=== PATIENT | female | born 1980 | race Hispanic/Latino ===

== ENCOUNTER 2018-12-21 23:24 | Emergency (ER) | payer SELFPAY ==
[2018-12-22 01:32] LABS: Protime INR 0.9
[2018-12-22 01:34] LABS: Basophils % 0.2 % (0-1.3); Hematocrit 31.4 % (36.0-45.0); Lymphocytes % 23.5 % (15.3-44.8); MPV 9.4 fL (7.6-11.3)
[2018-12-22 01:43] LABS: Albumin 3.8 g/dL (3.4-5.0); Bilirubin Direct 0.1 mg/dL (0-0.2); Bilirubin Total 0.4 mg/dL (0.2-1.0); Magnesium 1.9 mg/dL (1.8-2.4); Potassium 3.6 mmol/L (3.5-5.1); Protein, Total 7.4 g/dL (6.4-8.2)
[2018-12-22 01:44] LABS: Urine Blood NEGATIVE (NEG); Urine Glucose TRACE (NEG); Urine Protein NEGATIVE (NEG); Urine Specific Gravity 1.025 (1.005-1.030)
[2018-12-22 02:06] LABS: Urine Bacteria 20-50 /HPF (<20); Urine Culture Reflex Order REFLEXED; Urine RBC NONE SEEN /HPF (NONE SEEN); Urine Yeast FEW (NONE SEEN); Urine Yeast with Hyphae PRESENT
[2018-12-22] MEDS ORDERED: FLUCONAZOLE 100 MG TAB ONE (03:41)
[2018-12-22] MEDS ORDERED: CEFTRIAXONE 1000 MG/VIAL ONE (03:42)
[2018-12-22] MEDS ORDERED: NA CHLORIDE 0.9% 50 ML IV ONE (03:42)
--- NOTE | 2018-12-22 05:21 | ER ---
Nurse's Notes [facility] Name: Jane Pitt Age: 38 yrs Sex: Female : 1980 Arrival Date: 12/21/2018 Time: 23:27 Bed 4 Private MD: Diagnosis: acute left sided weakness. ;acute left sided numbess;acute Left sided abdominal pain Presentation: 12/21 23:50 Presenting complaint: Patient states: I am having left sided numbness, left breast wh pressure, left sided abdominal pain, and my left ear gets hot and I have a ringing in my ear. 23:50 Transition of care: patient was not received from another setting of care. Onset of symptoms was December 14, 2018. Risk Assessment: Do you want to hurt yourself or someone else? Patient reports no desire to harm self or others. Initial Sepsis Screen: Does the patient meet any 2 criteria? No. Patient's initial sepsis screen is negative. Does the patient have a suspected source of infection? No. Patient's initial sepsis screen is negative. Care prior to arrival: None. 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 - Social history:: Smoking status: Patient/guardian denies using tobacco, Patient/guardian denies using alcohol. - Ebola Screening: : No symptoms or risks identified at this time. - Family history:: not pertinent. - Hospitalizations: : No recent hospitalization is reported. Screenin:50 Abuse screen: Denies threats or abuse. Nutritional screening: No deficits noted. Tuberculosis screening: No symptoms or risk factors identified. Fall Risk Gait- Impaired (20 pts.). Total Briscoe Fall Scale indicates No Risk (0-24 pts). Assessment: 23:50 General: Appears in no apparent distress. comfortable, Behavior is calm, cooperative, wh appropriate for age. Pain: Complains of pain in left ear, left breast and left lower quadrant Pain does not radiate. Pain currently is 5 out of 10 on a pain scale. Quality of pain is described as burning, pressure, stabbing, Pain began 1 week ago. Is intermittent. Neuro: Level of Consciousness is awake, alert, obeys commands, Oriented to person, place, time, situation, Stretching Machine Operator are equal bilaterally Moves all extremities. Weakness in left hand(s) foot/feet Gait is steady, Speech is normal, Facial symmetry appears normal, Pupils are PERRLA, Reports numbness in Left side. Cardiovascular: Patient's skin is warm and dry. Respiratory: Airway is patent Respiratory effort is even, unlabored, Respiratory pattern is regular, symmetrical. GI: Abdomen is flat, non-distended, Patient currently denies diarrhea, nausea, vomiting. : No deficits noted. No signs and/or symptoms were reported regarding the genitourinary system. EENT: No deficits noted. No signs and/or symptoms were reported regarding the EENT system. Derm: Skin is intact, Skin is pink, warm \T\ dry. Musculoskeletal: Circulation, motion, and sensation intact. Range of motion: intact in all extremities. 12/22 01:11 Reassessment: Patient appears in no apparent distress at this time. Patient and/or jb4 family updated on plan of care and expected duration. Pain level reassessed. Patient is alert, oriented x 3, equal unlabored respirations, skin warm/dry/pink. 02:00 Reassessment: Patient appears in no apparent distress at this time. Patient and/or jb4 family updated on plan of care and expected duration. Pain level reassessed. PT is resting in bed with eyes closed, no s/s of distress or pain noted. respirations are even, symmetrical, and unlabored. 02:37 Reassessment: PT is in CT. jb4 03:30 Reassessment: Patient appears in no apparent distress at this time. Patient and/or jb4 family updated on plan of care and expected duration. Pain level reassessed. Patient is alert, oriented x 3, equal unlabored respirations, skin warm/dry/pink. 04:27 Reassessment: Patient appears in no apparent distress at this time. Patient and/or jb4 family updated on plan of care and expected duration. Pain level reassessed. Patient is alert, oriented x 3, equal unlabored respirations, skin warm/dry/pink. 05:30 Reassessment: Patient appears in no apparent distress at this time. Patient and/or jb4 family updated on plan of care and expected duration. Pain level reassessed. Patient is alert, oriented x 3, equal unlabored respirations, skin warm/dry/pink. 07:07 Reassessment: Patient appears in no apparent distress at this time. Patient and/or jb4 family updated on plan of care and expected duration. Pain level reassessed. Patient is alert, oriented x 3, equal unlabored respirations, skin warm/dry/pink. Report given to [facility], PT transferred to [facility] in [place]. Vital Signs: 12/21 23:50 BP 135 / 78; Pulse 91; Resp 16; Temp 98.4(TE); Pulse Ox 100% on R/A; Weight 90.72 kg wh (R); Height 5 ft. 1 in. (154.94 cm) (R); Pain 5/10; 12/22 01:30 BP 115 / 96; Pulse 84; Resp 16; Pulse Ox 100% on R/A; jb4 02:00 BP 114 / 75; Pulse 83; Resp 16; Pulse Ox 100% on R/A; jb4 03:00 BP 107 / 62; Pulse 79; Resp 16; Pulse Ox 100% on R/A; jb4 04:00 BP 114 / 62; Pulse 86; Resp 16; Pulse Ox 94% on R/A; jb4 05:00 BP 106 / 70; Pulse 74; Resp 16; Pulse Ox 100% on R/A; jb4 06:00 BP 116 / 80; Pulse 86; Resp 16; Temp 98.7(O); Pulse Ox 100% on R/A; jb4 07:00 BP 115 / 71; Pulse 81; Resp 16; Pulse Ox 100% on R/A; Pain 0/10; jb4 12/21 23:50 Body Mass Index 37.79 (90.72 kg, 154.94 cm) ED Course: 12/21 23:27 Patient arrived in ED. ds1 23:46 Artur Ronquillo MD is Attending Physician. wa 23:50 Arm band placed on right wrist. wh 23:50 Patient has correct armband on for positive identification. Placed in gown. Bed in low wh position. Call light in reach. Side rails up X 1. Pulse ox on. NIBP on. 12/22 00:02 Madisyn Ford is Primary Nurse. 00:07 Triage completed. 00:25 EKG done, by ED staff, reviewed by Artur Ronquillo MD. lt1 00:26 Ilir Morales RN is Primary Nurse. jb4 00:41 Radiology exam delayed due to lab results not completed at this time. (BUN/Creatinine) kw1 test not completed at this time. 01:05 Initial lab(s) drawn, by il, sent to lab. Inserted saline lock: 20 gauge in right jb4 antecubital area, using aseptic technique. Blood collected. 01:07 Radiology exam delayed due to lab results not completed at this time. (BUN/Creatinine). kw1 01:23 Radiology exam delayed due to lab results not completed at this time. (BUN/Creatinine). kw1 02:39 CT Head Brain wo Cont In Process Unspecified. EDMS 02:43 CT Abd/Pelvis - IV Contrast Only In Process Unspecified. EDMS 07:00 No provider procedures requiring assistance completed. Patient transferred, IV remains jb4 in place. Administered Medications: 04:26 Drug: Rocephin - (cefTRIAXone) 1 grams Route: IVPB; Infused Over: 30 mins; Site: right jb4 antecubital; 04:56 Follow up: Response: No adverse reaction; IV Status: Completed infusion; IV Intake: [id number] 04:26 Drug: DiFLUcan 100 mg Route: PO; jb4 04:56 Follow up: Response: No adverse reaction jb4 06:00 Drug: Aspirin Chewable Tablet 324 mg Route: PO; jb4 06:29 Follow up: Response: No adverse reaction jb4 Intake: 04:56 IV: 50ml; Total: 50ml. jb4 Outcome: 05:20 ER care complete, transfer ordered by . ira 07:00 Transferred by ground EMS to [facility], Transfer form completed. jb4 07:00 Condition: stable 07:00 Discharge instructions given to patient, family, Instructed on the need for transfer, Demonstrated understanding of instructions. 07:10 Patient left the ED. jb4 Signatures: Dispatcher [employer] EDRI Richard, Arlene ds1 Ilir Morales RN RN jb4 Madisyn Ford Artur Ronquillo MD MD ar Domi Gandara kw1 Sintia Stanley lt1 Corrections: (The following items were deleted from the chart) 00:13 12/21 23:50 Fall Risk None identified. [facility] 12/22 02:37 02:35 Reassessment: Patient appears in no apparent distress at this time. Patient jb4 and/or family updated on plan of care and expected duration. Pain level reassessed. PT is resting in bed with eyes closed, no s/s of distress or pain noted. respirations are even, symmetrical, and unlabored. jb4 04:31 12/21 23:50 Neuro: Level of Consciousness is awake, alert, obeys commands, Oriented to jb4 person, place, time, situation, Reports numbness in Left side. 12/22 06:00 09 23:50 Neuro: Level of Consciousness is awake, alert, obeys commands, Oriented to jb4 person, place, time, situation, Moves all extremities. Gait is steady, Speech is normal, Facial symmetry appears normal, Pupils are PERRLA, Reports numbness in Left side. jb4 12/22 06:02 12/21 23:50 GI: Abdomen is flat, non-distended, jb4
--- NOTE | 2018-12-22 05:22 | EDPHYS ---
Physician Documentation [facility] Name: Jane Pitt Age: 38 yrs Sex: Female : 1980 Arrival Date: 12/21/2018 Time: 23:27 Bed 4 Private MD: ED Physician Artur Ronquillo HPI: 12/22 05:02 This 38 yrs old Female presents to ER via Wheelchair with complaints of wa Numbness - L Side, Abdominal Pain. 05:02 The patient's problem is reported as weakness, in the left upper extremity, in the left wa lower extremity, in the left side of face. Onset: The symptoms/episode began/occurred 1 week(s) ago. Duration: The episode is continuous. Context: the episode(s) was witnessed, self, symptoms became apparent 1 week ago, occurred at home, occurred while the patient was at rest, Possible contributing factors include: none. The symptoms are alleviated by nothing. The symptoms are aggravated by nothing. Associated signs and symptoms: Pertinent positives: abdominal pain, numbness, Pertinent negatives: blurred vision, chest pain, diaphoresis, diarrhea, dizziness, headache, lightheadedness, nausea. Severity of symptoms: At their worst the symptoms were moderate in the emergency department the symptoms are unchanged. Patient's baseline: Neuro: alert and fully oriented, Motor: no deficits, Ambulation: walks without assistance, Speech: normal, The patient has a previous history of none. The patient has not experienced similar symptoms in the past. The patient has not recently seen a physician. 38 yo F. c/o numbness, entire L side with decreased strength. also c/o L side abdominal pain that wax and wane x several months. This episode noted x 3 days. 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 - Social history:: Smoking status: Patient/guardian denies using tobacco, Patient/guardian denies using alcohol. - Ebola Screening: : No symptoms or risks identified at this time. - Family history:: not pertinent. - Hospitalizations: : No recent hospitalization is reported. ROS: 12/22 05:07 Constitutional: Negative for fever, chills, and weight loss, Eyes: Negative for injury, wa pain, redness, and discharge, ENT: Negative for injury, pain, and discharge, Neck: Negative for injury, pain, and swelling, Cardiovascular: Negative for chest pain, palpitations, and edema, Respiratory: Negative for shortness of breath, cough, wheezing, and pleuritic chest pain, Back: Negative for injury and pain, : Negative for injury, bleeding, discharge, and swelling, MS/Extremity: Negative for injury and deformity, Skin: Negative for injury, rash, and discoloration, Psych: Negative for depression, anxiety, suicide ideation, homicidal ideation, and hallucinations. Abdomen/GI: Positive for abdominal pain, of the left upper quadrant, Negative for nausea and vomiting, diarrhea. Neuro: Positive for numbness, weakness, of the left side. All other systems are negative. Exam: 05:08 Radiologist reports: no acute abnml wa 05:08 Constitutional: This is a well developed, well nourished patient who is awake, alert, and in no acute distress. Head/Face: Normocephalic, atraumatic. Eyes: Pupils equal round and reactive to light, extra-ocular motions intact. Lids and lashes normal. Conjunctiva and sclera are non-icteric and not injected. Cornea within normal limits. Periorbital areas with no swelling, redness, or edema. ENT: Nares patent. No nasal discharge, no septal abnormalities noted. Tympanic membranes are normal and external auditory canals are clear. Oropharynx with no redness, swelling, or masses, exudates, or evidence of obstruction, uvula midline. Mucous membranes moist. Neck: Trachea midline, no thyromegaly or masses palpated, and no cervical lymphadenopathy. Supple, full range of motion without nuchal rigidity, or vertebral point tenderness. No Meningismus. Chest/axilla: Normal chest wall appearance and motion. Nontender with no deformity. No lesions are appreciated. Cardiovascular: Regular rate and rhythm with a normal S1 and S2. No gallops, murmurs, or rubs. Normal PMI, no JVD. No pulse deficits. Respiratory: Lungs have equal breath sounds bilaterally, clear to auscultation and percussion. No rales, rhonchi or wheezes noted. No increased work of breathing, no retractions or nasal flaring. Back: No spinal tenderness. No costovertebral tenderness. Full range of motion. Skin: Warm, dry with normal turgor. Normal color with no rashes, no lesions, and no evidence of cellulitis. MS/ Extremity: Pulses equal, no cyanosis. Neurovascular intact. Full, normal range of motion. Psych: Awake, alert, with orientation to person, place and time. Behavior, mood, and affect are within normal limits. 05:08 Abdomen/GI: Inspection: abdomen appears normal, Bowel sounds: normal, Palpation: mild abdominal tenderness, in the left upper quadrant and left lower quadrant. 05:08 Neuro: Orientation: is normal, Mentation: is normal, Cranial nerves: grossly normal, is grossly normal based on the patient's age, Cerebellar function: normal finger to nose testing, heel to roche testing is normal, able to perform alternating rapid hand movements, Motor: Strength is 3/5 in the left LLE and LUE. Vital Signs: 12/21 23:50 BP 135 / 78; Pulse 91; Resp 16; Temp 98.4(TE); Pulse Ox 100% on R/A; Weight 90.72 kg wh (R); Height 5 ft. 1 in. (154.94 cm) (R); Pain 5/10; 12/22 01:30 BP 115 / 96; Pulse 84; Resp 16; Pulse Ox 100% on R/A; jb4 02:00 BP 114 / 75; Pulse 83; Resp 16; Pulse Ox 100% on R/A; jb4 03:00 BP 107 / 62; Pulse 79; Resp 16; Pulse Ox 100% on R/A; jb4 04:00 BP 114 / 62; Pulse 86; Resp 16; Pulse Ox 94% on R/A; jb4 05:00 BP 106 / 70; Pulse 74; Resp 16; Pulse Ox 100% on R/A; jb4 06:00 BP 116 / 80; Pulse 86; Resp 16; Temp 98.7(O); Pulse Ox 100% on R/A; jb4 07:00 BP 115 / 71; Pulse 81; Resp 16; Pulse Ox 100% on R/A; Pain 0/10; jb4 12/21 23:50 Body Mass Index 37.79 (90.72 kg, 154.94 cm) wh MDM: 12/21 23:46 Patient medically screened. 12/22 05:09 Differential diagnosis: CVA, TIA, uncertain etiology. also c/o L side abd pain. will de work up and reassess. Data reviewed: vital signs, nurses notes. 05:11 Test interpretation: by ED physician or midlevel provider: labs noted for pyuria and de harshal vaginitis. CT brain: no acute process. CTabd/pelvis: no acute process. fatty liver. Response to treatment: the patient's symptoms have markedly improved after treatment. 05:13 Test interpretation: by ED physician or midlevel provider: EKG: interp by me. HR 85. wa ninus.nml axis. regular intervals. no acute zonal dysrhythmic or ischemic change.. Physician consultation:. Other consultation: . 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 spoke w/ Dr. Fung at [facility]. pt accepted for further neuro eval. will transfer. . 12/22 00:05 Order name: Basic Metabolic Panel; Complete Time: 03:13 12/22 00:05 Order name: CBC with Diff; Complete Time: 03:13 12/22 00:05 Order name: CPK; Complete Time: 03:13 12/22 00:05 Order name: Hepatic Function; Complete Time: 03:13 12/22 00:05 Order name: Lipase; Complete Time: 03:13 12/22 00:05 Order name: Magnesium; Complete Time: 03:13 12/22 00:05 Order name: CT Head Brain wo Cont 12/22 00:05 Order name: Protime (+inr); Complete Time: 03:13 12/22 00:05 Order name: Troponin (emerg Dept Use Only); Complete Time: 03:13 12/22 00:08 Order name: CT Abd/Pelvis - IV Contrast Only 12/22 00:08 Order name: Urine Microscopic Only; Complete Time: 03:13 12/22 00:59 Order name: Urine Dipstick--Ancillary (enter results); Complete Time: 03:13 [facility] 12/22 00:59 Order name: Urine --Ancillary (enter results); Complete Time: 03:13 [facility] 12/22 02:09 Order name: Urine Culture EDMO 12/22 00:05 Order name: EKG; Complete Time: 00:08 de 12/22 00:05 Order name: Cardiac monitoring; Complete Time: 00:59 de 12/22 00:05 Order name: EKG - Nurse/Tech; Complete Time: 00:25 de 12/22 00:05 Order name: IV Saline Lock; Complete Time: 00:59 de 12/22 00:05 Order name: Labs collected and sent; Complete Time: 00:59 de 12/22 00:05 Order name: NPO; Complete Time: 00:18 de 12/22 00:05 Order name: O2 Per Protocol; Complete Time: 00:59 de 12/22 00:05 Order name: O2 Sat Monitoring; Complete Time: 00:59 de 12/22 00:05 Order name: Urine Dipstick-Ancillary (obtain specimen); Complete Time: 00:38 de 12/22 00:09 Order name: Urine Test (obtain specimen); Complete Time: 00:38 de Administered Medications: 04:26 Drug: Rocephin - (cefTRIAXone) 1 grams Route: IVPB; Infused Over: 30 mins; Site: right jb4 antecubital; 04:56 Follow up: Response: No adverse reaction; IV Status: Completed infusion; IV Intake: [id number] 04:26 Drug: DiFLUcan 100 mg Route: PO; jb4 04:56 Follow up: Response: No adverse reaction 4 06:00 Drug: Aspirin Chewable Tablet 324 mg Route: PO; jb4 06:29 Follow up: Response: No adverse reaction jb Disposition: 12/22/18 05:20 Transfer ordered to [facility]. Diagnosis are acute left sided weakness. , acute left sided numbess, acute Left sided abdominal pain. - Reason for transfer: Higher level of care. - Accepting physician is Dr. Fung - [facility]. - Condition is Stable. - Problem is new. - Symptoms have improved. Signatures: Dispatcher [employer] EDMS Ilir Morales, RN RN jb4 Madisyn Ford William, MD MD wa Corrections: (The following items were deleted from the chart) 07:10 05:20 12/22/2018 05:20 Transfer ordered to [facility]. Diagnosis is jb4 acute left sided weakness. ; acute left sided numbess; acute Left sided abdominal pain. Reason for transfer: Higher level of care. Accepting physician is Dr. [facility]. Condition is Stable. Problem is new. Symptoms have improved. wa
[2018-12-22] MEDS ORDERED: ASPIRIN 81 MG CHEWABLE TABLET ONE (05:55)
[2018-12-22 07:23] VITALS: O2SAT 100
[2018-12-22 07:25] VITALS: TEMP 98.7
[2018-12-22 07:26] VITALS: BP 115/71
--- NOTE | 2018-12-22 13:17 | EKG ---
Test Date: 2018-12-22 Test Time: 00:25:07 Water Quality Control Engineer: RAYSA MEASUREMENT RESULTS: Intervals: Rate: 85 NJ: 136 QRSD: 92 QT: 358 QTc: 426 Neely: P: 53 NJ: 136 QRS: 27 T: 52 INTERPRETIVE STATEMENTS: Normal sinus rhythm Normal ECG Compared to ECG 09/11/2014 16:50:50 Sinus bradycardia no longer present Electronically Signed On 12-22-18 13:17:30 CDT by Jesús Juarez
--- NOTE | 2018-12-23 10:48 | RAD REPORT ---
EXAM DESCRIPTION: CT - Abdomen Pelvis W Contrast - 12/22/2018 4:26 am CLINICAL HISTORY: L side abd pain COMPARISON: None. TECHNIQUE: CT ABDOMEN PELVIS WITH IV CONTRAST on 12/22/2018 12:08 AM CDT This exam was performed according to our departmental dose-optimization program, which includes autom ated exposure control, adjustment of the mA and/or kV according to patient size and/or use of iterati ve reconstruction technique. FINDINGS: Lower lungs are clear. Abdomen: Liver is fatty in attenuation gallbladder is normal in appearance. There is no biliary dilat ation. The pancreas and spleen are normal in appearance. The adrenal glands and kidneys are unremarka ble. Abdominal aorta is normal in course and caliber without aneurysm. There is no free air. There is no r etroperitoneal adenopathy. Pelvis: There is no bowel obstruction. Urinary bladder is unremarkable. There is no free fluid. Uteru s is normal in size. Appendix is normal. Skeleton: There are no acute osseous findings. No suspicious bony lesions. IMPRESSION: No acute inflammatory process. No renal or ureteral calculi. Electronically signed by: Robert Cabral MD 12/22/2018 4:03 AM CDT Due to temporary technical issues with the PACS/Fluency reporting system, reports are being signed by the in house radiologist as a courtesy to ensure prompt reporting. The interpreting radiologist is f ully responsible for the content of the report.
--- NOTE | 2018-12-23 10:50 | RAD REPORT ---
EXAM DESCRIPTION: CT - Head Brain Wo Cont - 12/22/2018 4:26 am CLINICAL HISTORY: L side numb/weak COMPARISON: None. TECHNIQUE: CT HEAD WITHOUT IV CONTRAST on 12/22/2018 12:05 AM CDT This exam was performed according to our departmental dose-optimization program, which includes autom ated exposure control, adjustment of the mA and/or kV according to patient size and/or use of iterati ve reconstruction technique. FINDINGS: There is no acute hemorrhage, mass effect or midline shift. Dominguez-white differentiation is preserved. There is no hydrocephalus. There is no significant volume loss for age. The calvarium is intact. Orbits and globes are unremarkable. The paranasal sinuses are clear. Mastoid air cells are clear. IMPRESSION: No acute intracranial findings. Electronically signed by: Robert Cabral MD 12/22/2018 4:02 AM CDT Due to temporary technical issues with the PACS/Fluency reporting system, reports are being signed by the in house radiologist as a courtesy to ensure prompt reporting. The interpreting radiologist is f ully responsible for the content of the report.
== END 2018-12-22 07:10 | disposition short-term general hospital (02) ==
LOC: ER 23:24
DX: R20.0 Anesthesia of skin (principal); R10.9 Unspecified abdominal pain
CPT/HCPCS: 36415; 70450; 74177; 80048; 80076; 81003; 81015; 81025; 82550; 83690; 83735; 84484; 85025; 85610; 87086; 87088; 93005; 96365; 99285; Q9967

== ENCOUNTER 2019-11-20 21:28 | Emergency (ER) | payer OTHER ==
--- OUTSIDE RECORDS SUMMARY | 2019-11-20 21:31 | XMS REPORT | Continuity of Care Document ---
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) Paresthesia Active Problem 11/21/2019 [facility] (finding) Neuro Anemia Active Problem 11/21/2019 [facility] (disorder) Neuro Medications Medication Details Route Status Patient Ordering Order Source Instructions Provider Date 1 ML 40 mg, Active [facility] glatiramer SUB-Q, 020 Neuro acetate 40 Q-M-W-[id number], # MG/ML 12 pkt, 3 Prefilled Refill(s), Syringe Pharmacy: [Copaxone] [facility] 808 gabapentin 0 Refill(s) Active [facility] 300 MG Oral 020 Neuro Capsule gabapentin PO, 0 Inactive [facility] Refill(s) 020 Neuro Allergies, Adverse Reactions, Alerts Substance Category Reaction Severity Reaction Status Date Comments S ource type Reported No Known Assertion Drug Misch er Medication allergy Neuro Allergies Immunizations No Data Provided for This Section Results No Data Provided for This Section Pathology Reports No Data Provided for This Section Diagnostic Reports No Data Provided for This Section Consultation Notes No Data Provided for This Section Discharge Summaries No Data Provided for This Section History and Physicals No Data Provided for This Section Vital Signs Vital Sign Value Date Comments Source Systolic (mm Hg) 115 11/18/2019 [facility] Diastolic (mm Hg) 89 [facility] 73 11/18/2019 [facility] Respitory Rate 16 [facility] Height 152.4 cm 11/18/2019 [facility] Weight 100.455 11/18/2019 [facility] BMI Calculated 43.25 11/18/2019 [facility] Systolic (mm Hg) 117 05/16/2019 [facility] Diastolic (mm Hg) 84 05/16/2019 [facility] Ne uro Heart Rate 66 05/16/2019 [facility] Neuro Respitory Rate 16 05/16/2019 [facility] Neuro Height 154.94 cm 05/16/2019 [facility] Neuro Weight 102.727 05/16/2019 [facility] Neuro BMI Calculated 42.79 05/16/2019 [facility] Neuro Encounters Location Location Encounter Encounter Reason Attending ADM DC Stat us Source Details Type Number For Provider Date Date Visit Outpatient [id number] [place] 05/16 Active [facility] /2020 [place] [facility] Outpatient [id number] [place] 05/16 05/17 [facility] Neurology [place] /2019 [facility] Outside [id number] 05/26 05/28 [facility] Neurology Medical /2019 Neuro [facility] Outpatient [id number] [place] 07/07 [facility] [place] [facility] [id number] [place] 07/07 07/08 [facility] Neurology [place] /2019 /2019 [facility] Outside [id number] 07/17 07/19 [facility] Neurology Medical /2019 Neuro [place] Records Outpatient [id number] [place] 11/17 Active [facility] /2020 [place] [facility] Outpatient [id number] [place] 11/17 11/18 [facility] Neurology [place] /2019 Neuro [place] Outpatient [id number] [place] 02/17 Active [facility] [place] /2020 [place] Procedures Procedure Code Date Perfomer Comments Source Cervical [id number] [facility] Neuro laminectomy Assessment and Plan No Data Provided for This Section Plan of Care No Data Provided for This Section Social History Social History Date Source Social History TypeResponse 11/18/2019 [facility] Neur o Smoking Status Never smoker; Exposure to Tobacco Smoke None; Cigarette Smoking Last 365 Days No; Reg Smoking Cessation Counseling No entered on: 11/18/19 Family History No Data Provided for This Section Advance Directives No Data Provided for This Section Functional Status No Data Provided for This Section
--- OUTSIDE RECORDS SUMMARY | 2019-11-20 21:31 | XMS REPORT | Clinical Summary ---
:1980 Author Organization [facility] Address [address] [place] [address] Care Team Providers Name Role Phone Pcp, No Primary Care Provider Unavailable Ilir Fuller Unavailable Allergies No Known Allergies Medications Medication Sig Dispensed Refills Start Date End Date Status atorvastatin Take 1 tablet 90 tablet 3 12/31/2018 12/31/2019 A ctive (LIPITOR) 10 MG (10 mg total) by tablet mouth nightly. gabapentin Take 2 capsules 90 capsule 3 12/31/2018 03/01/2019 (NEURONTIN) 300 MG (600 mg total) capsule by mouth 3 (three) times daily for 60 days. 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 Last Filed Vital Signs Vital Sign Reading Time Taken Blood Pressure 143/94 12/31/2018 7:00 AM CDT Pulse 75 12/31/2018 7:00 AM CDT Temperature 36.8 C (98.3 F) 12/31/2018 7:00 AM CDT Respiratory Rate 20 12/31/2018 7:00 AM CDT Oxygen Saturation 93% 12/31/2018 7:00 AM CDT Inhaled Oxygen Concentration - - Weight 97 kg (213 lb 14.4 oz) 12/27/2018 3:00 PM CDT Height 157.5 cm (5' 2") 12/22/2018 8:34 AM CDT Body Mass Index 39.12 12/27/2018 3:00 PM CDT Plan of Treatment Not on file Implants Implanted Type Area Wrinkle Chaser Device Shelf Model / Identifier Expiration Serial / Lot Date [employer] Suturable 2x2in Dms22 - [id number] IMPLANTS N/A: [facility]:CRANIOM 08/30/2020 DMS22 / Implanted: Qty: 1 on 12/27/2018 by Iker Ayoub MD Brain AXILLOFACIAL / [id number] Procedures Procedure Name Priority Date/Time Associated Diagnosis Comme nts REPORT OF PROCEDURE - 01/01/2019 3:02 ENDOSCOPY SCAN PM CDT RHYTHM STRIP - SCAN 01/01/2019 3:01 PM CDT CBC W/PLT COUNT & AUTO Routine 12/31/2018 5:26 R esults for this DIFFERENTIAL AM CDT procedure are i n the results section. BASIC METABOLIC PANEL Routine 12/31/2018 5:26 Re sults for this (7) AM CDT procedure are i n the results section. CBC W/PLT COUNT & AUTO Routine 12/31/2018 5:26 R esults for this DIFFERENTIAL AM CDT procedure are i n the results section. CBC W/PLT COUNT & AUTO Routine 12/30/2018 3:37 R esults for this DIFFERENTIAL AM CDT procedure are i n the results section. BASIC METABOLIC PANEL Routine 12/30/2018 3:37 Re sults for this (7) AM CDT procedure are i n the results section. CBC W/PLT COUNT & AUTO Routine 12/30/2018 3:37 R esults for this DIFFERENTIAL AM CDT procedure are i n the results section. CBC W/PLT COUNT & AUTO Routine 12/29/2018 7:29 R esults for this DIFFERENTIAL AM CDT procedure are i n the results section. PROTHROMBIN TIME/INR Routine 12/29/2018 7:29 Res ults for this AM CDT procedure are i n the results section. PT/APTT Routine 12/29/2018 7:29 Results for this AM CDT procedure are i n the results section. CBC W/PLT COUNT & AUTO Routine 12/29/2018 7:29 R esults for this DIFFERENTIAL AM CDT procedure are i n the results section. BASIC METABOLIC PANEL Routine 12/29/2018 7:29 Re sults for this (7) AM CDT procedure are i n the results section. CBC (HEMOGRAM ONLY) Routine 12/28/2018 3:54 Resu lts for this AM CDT procedure are i n the results section. PHOSPHORUS Routine 12/28/2018 3:54 Results for this AM CDT procedure are i n the results section. MAGNESIUM Routine 12/28/2018 3:54 Results for this AM CDT procedure are i n the results section. BASIC METABOLIC PANEL Routine 12/28/2018 3:54 Re sults for this (7) AM CDT procedure are i n the results section. RHYTHM STRIP - SCAN 12/27/2018 12:14 PM CDT LAMINECTOMY,CERVICAL 12/27/2018 9:45 Chiari I FACETECTOMY/ AM CDT malformation (HCC) FORAMINOTOMY/ DECOMPRESSION Special Needs (REQUESTING 2ND ROOM, NEURO- MONMITORING: SSEP, MEP, MICROSCOPE) CRANIOTOMY/ CRANIECTOMY,SUBOCCIPITAL 12/27/2018 9:45 AM Chiari I malformation EXPLORATION/ DECOMPRESSION CDT (HCC) Special Needs (REQUESTING 2ND ROOM, NEURO- MONMITORING: SSEP, MEP, MICROSCOPE) HCG, QUANTITATIVE, STAT 12/27/2018 9:13 AM CDT Results for this procedure are i n the results section . CBC W/PLT COUNT & AUTO Routine 12/25/2018 11:11 AM CDT Results for this DIFFERENTIAL procedure are i n the results section . PT/APTT Routine 12/25/2018 11:11 AM CDT Resu lts for this procedure are i n the results section . BASIC METABOLIC PANEL (7) Routine 12/25/2018 11:11 AM CDT Results for this procedure are i n the results section . CBC W/PLT COUNT & AUTO Routine 12/25/2018 11:11 AM CDT Results for this DIFFERENTIAL procedure are i n the results section . MR THORACIC SPINE WITH & STAT 12/24/2018 5:35 PM CDT Results for this WITHOUT IV CONTRAST procedur e are in the results section . MR LUMBAR SPINE WITH & STAT 12/24/2018 5:35 PM CDT Results for this WITHOUT IV CONTRAST procedur e are in the results section . MR CERVICAL SPINE WITH & STAT 12/23/2018 6:30 PM CDT Results for this WITHOUT IV CONTRAST procedur e are in the results section . MR BRAIN WITH & WITHOUT IV STAT 12/23/2018 6:30 PM CDT Results for this CONTRAST procedure are i n the results section . MR BRAIN WITHOUT IV CONTRAST STAT 12/22/2018 7:27 PM CDT Results for this procedure are i n the results section . URINALYSIS W/ REFLEX URINE Routine 12/22/2018 10:20 AM CDT Results for this CULTURE procedure are i n the results section . CBC W/PLT COUNT & AUTO Routine 12/22/2018 9:26 AM CDT Results for this DIFFERENTIAL procedure are i n the results section . HEMOGLOBIN A1C Routine 12/22/2018 9:26 AM CDT Re sults for this procedure are i n the results section . LIPID PANEL Routine 12/22/2018 9:26 AM CDT Resu lts for this procedure are i n the results section . PHOSPHORUS Routine 12/22/2018 9:26 AM CDT Resu lts for this procedure are i n the results section . MAGNESIUM Routine 12/22/2018 9:26 AM CDT Resu lts for this procedure are i n the results section . BASIC METABOLIC PANEL (7) Routine 12/22/2018 9:26 AM CDT Results for this procedure are i n the results section . CBC W/PLT COUNT & AUTO Routine 12/22/2018 9:26 AM CDT Results for this DIFFERENTIAL procedure are i n the results section . VITAMIN B12 AND FOLATE Routine 12/22/2018 9:25 AM CDT Results for this procedure are i n the results section . TSH/FREE T4 IF INDICATED Routine 12/22/2018 9:25 AM CDT Results for this procedure are i n the results section . after 11/19/2018 Results EKG-SCANNED (01/01/2019 3:02 PM CDT) Narrative Performed At This result has an attachment that is no t available. RHYTHM STRIP - SCAN (01/01/2019 3:01 PM CDT)Only the most recent of2 results within the time period is included. Narrative Performed At This result has an attachment that is no t available. CBC with platelet count + automated diff (12/31/2018 5:26 AM CDT)Only the most recent of5 resultswithin the time period is included. WBC 10.1 3.5 - 10.5 K/L [facility] RBC 3.24 (L) 3.93 - 5.22 M/L [facility] Hemoglobin 8.9 (L) 11.2 - 15.7 GM/DL [facility] Hematocrit 28.9 (L) 34.1 - 44.9 % [facility] MCV 89.2 79.4 - 94.8 fL [facility] MCH 27.5 25.6 - 32.2 pg [facility] MCHC 30.8 (L) 32.2 - 35.5 GM/DL [facility] RDW 14.8 (H) 11.7 - 14.4 % [facility] Platelets 305 150 - 450 K/CU MM [facility] MPV 11.0 9.4 - 12.3 fL [facility] nRBC 0 0 - 0 /100 WBC [facility] % Neutros 66 % [facility] % Lymphs 19 % [facility] % Monos 10 % [facility] % Eos 4 % [facility] % Baso 0 % [facility] # Neutros 6.71 (H) 1.56 - 6.13 K/L [facility] # Lymphs 1.91 1.18 - 3.74 K/L [facility] # Monos 1.05 (H) 0.24 - 0.36 K/L [facility] # Eos 0.39 (H) 0.04 - 0.36 K/L [facility] # Baso 0.03 0.01 - 0.08 K/L [facility] Immature Granulocytes-Relative 0 0 - 1 % C [facility] Specimen Blood Performing Organization Address City/State/Zipcode Phone Number [facility] [address] [place] [address] CENTER Basic Metabolic Panel (12/31/2018 5:26 AM CDT)Only the most recent of6 results within the time period is included. Sodium 136 136 - 145 meq/L [facility] Potassium 4.1 3.5 - 5.1 meq/L [facility] Chloride 102 98 - 107 meq/L [facility] CO2 26 22 - 29 meq/L [facility] BUN 8 7 - 21 mg/dL [facility] Creatinine 0.63 0.57 - 1.25 mg/dL [facility] Glucose 102 70 - 105 mg/dL [facility] Calcium 8.7 8.4 - 10.2 mg/dL [facility] EGFR 105Comment: ESTIMATED GFR IS mL/min/1.73 sq m CH I [facility] NOT ACCURATE CREATININE [place] [facility] CLEARANCE IN PREDICTING GLOMERULAR FILTRATION RATE. ESTIMATED GFR IS NOT APPLICABLE FOR DIALYSIS PATIENTS. Specimen Blood Performing Organization Address City/[facility]/Zipcode Phone Number [address] [address] CENTER PT/aPTT (12/29/2018 7:29 AM CDT)Only the most recent of2 resultswithin the time period is included. Protime 13.1 11.9 - 14.2 seconds [facility] INR 1.0 <=5.9 [facility] PTT 32.5 22.5 - 36.0 seconds [facility] Specimen Blood Narrative Performed At Effective 08/28/2018: PT Reference Range [facility] Change New: 11.9-14.2Previous: 11.7-14.7 RECOMMENDED COUMADIN/WARFARIN INR THERAPY RANGES STANDARD DOSE: 2.0-3.0Includes: PROPHYLAXIS for venous thrombosis, systemic embolization; TREATMENT for venous thrombosis and/or pulmonary embolus. HIGH RISK: Target INR is 2.5-3.5 for patients wiht mechanical heart valves. Performing Organization Address City/State/Zipcode Phone Number [address] [address] CENTER Prothrombin time/INR (12/29/2018 7:29 AM CDT) Protime 13.1 11.9 - 14.2 seconds [facility] INR 1.0 <=5.9 [facility] Specimen Blood Narrative Performed At Effective 08/28/2018: PT Reference Range [facility] Change New: 11.9-14.2Previous: 11.7-14.7 RECOMMENDED COUMADIN/WARFARIN INR THERAPY RANGES STANDARD DOSE: 2.0-3.0Includes: PROPHYLAXIS for venous thrombosis, systemic embolization; TREATMENT for venous thrombosis and/or pulmonary embolus. HIGH RISK: Target INR is 2.5-3.5 for patients wiht mechanical heart valves. Performing Organization Address City/State/Zipcode Phone Number [address] [address] CENTER CBC (Hemogram only) (12/28/2018 3:54 AM CDT) WBC 18.8 (H) 3.5 - 10.5 K/L [facility] RBC 3.38 (L) 3.93 - 5.22 M/L [facility] Hemoglobin 9.3 (L) 11.2 - 15.7 GM/DL [facility] Hematocrit 29.3 (L) 34.1 - 44.9 % [facility] MCV 86.7 79.4 - 94.8 fL [facility] MCH 27.5 25.6 - 32.2 pg [facility] MCHC 31.7 (L) 32.2 - 35.5 GM/DL [facility] RDW 15.1 (H) 11.7 - 14.4 % [facility] Platelets 260 150 - 450 K/CU MM [facility] MPV 11.2 9.4 - 12.3 fL [facility] nRBC 0 0 - 0 /100 WBC [facility] Specimen Blood Performing Organization Address City/[facility] Phone Number [address] [address] CENTER Phosphorus (12/28/2018 3:54 AM CDT)Only the most recent of2 resultswithin the time period is included. Phosphorus 3.2Comment: Specimen slightly 2.3 - 4.7 mg/dL [facility] Specimen Blood Performing Organization Address City/[facility] Phone Number [address] [address] CENTER Magnesium (12/28/2018 3:54 AM CDT)Only the most recent of2 resultswithin the time period is included. Magnesium 1.7Comment: Specimen slightly 1.6 - 2.6 mg/dL [facility] Specimen Blood Performing Organization Address City/[facility]/Zipcode Phone Number [address] [address] GARY hCG, quantitative, (12/27/2018 9:13 AM CDT) hCG Quant <1 0 - 10 mIU/mL [facility] Specimen Blood Narrative Performed At Non- Females: <10 mIU/mL [facility] Females: Gestation AgeReference Range(mIU/mL) 0.2-1 Week5-50 1-2 Iezks54-227 2-3 Weeks 100-5,000 3-4 Weeks 500-10,000 4-5 Weeks 1,000-50,000 5-6 Weeks10,000-100,000 6-8 Weeks15,000-200,000 2-3 Months 10,000-100,000 Performing Organization Address City/State/Zipcode Phone Number [facility] [address] [place] [address] GARY MR lumbar spine without & with IV contrast (12/24/2018 5:35 PM CDT) Specimen Narrative Performed At FINAL REPORT [employer] MR, SPINE, THORACIC, WITH \\T\\ WITHOUT CO NTRAST, MR, SPINE, LUMBAR, WITH \\T\\ WITHOUT CONTRAST INDICATION: Multiple sclerosis, new even t MS r/o TECHNIQUE:Multiplanar, multisequence MRI of the thoracic and lumbar spine with and without intravenous contr ast. COMPARISON: MRI brain and cervical spine 12/23/2018 FINDINGS: THORACIC SPINE: Alignment: Normal Vertebral bodies: Vertebral body heights are maintained. No marrow edema. No aggressive osseous lesions. Spinal canal: No high-grade canal or for aminal stenosis. Cord: Large syrinx extends from the visu alized cervical spine throughout the thoracic spine and termin ates at the T11-12 level. No abnormal intrathecal enhancement. Soft tissues: Paraspinal soft tissues ar e unremarkable. LUMBAR SPINE: Nomenclature: L5-S1 is series 601 image 7. Alignment: Normal Vertebral bodies: Vertebral body heights are maintained. No marrow edema. No aggressive osseous lesions. Spinal canal: No high-grade canal or for aminal stenosis. Cord: Conus is of normal caliber and sig nal, and terminates at L1-2. Nerve roots of the cauda equina are of n ormal caliber and distribution. No abnormal intrathecal en hancement. Soft tissues: Paraspinal soft tissues ar e unremarkable. IMPRESSION: Syrinx extends from the visualized cervi sofia spine through the T11 level. Signed: Bushra Bob MD Report Verified Date/Time:12/24/2018 20:09:47 Procedure Note Interface, External Ris In - 12/24/2018 8:12 PM CDT FINAL REPORT MR, SPINE, THORACIC, WITH \\T\\ WITHOUT CO NTRAST, MR, SPINE, LUMBAR, WITH \\T\\ WITHOUT CONTRAST INDICATION: Multiple sclerosis, new even t MS r/o TECHNIQUE: Multiplanar, multisequence M RI of the thoracic and lumbar spine with and without intravenous contr ast. COMPARISON: MRI brain and cervical spine 12/23/2018 FINDINGS: THORACIC SPINE: Alignment: Normal Vertebral bodies: Vertebral body heights are maintained. No marrow edema. No aggressive osseous lesions. Spinal canal: No high-grade canal or for aminal stenosis. Cord: Large syrinx extends from the visu alized cervical spine throughout the thoracic spine and termin ates at the T11-12 level. No abnormal intrathecal enhancement. Soft tissues: Paraspinal soft tissues ar e unremarkable. LUMBAR SPINE: Nomenclature: L5-S1 is series 601 image 7. Alignment: Normal Vertebral bodies: Vertebral body heights are maintained. No marrow edema. No aggressive osseous lesions. Spinal canal: No high-grade canal or for aminal stenosis. Cord: Conus is of normal caliber and sig nal, and terminates at L1-2. Nerve roots of the cauda equina are of n ormal caliber and distribution. No abnormal intrathecal en hancement. Soft tissues: Paraspinal soft tissues ar e unremarkable. IMPRESSION: Syrinx extends from the visualized cervi sofia spine through the T11 level. Signed: Bushra Bob MD Report Verified Date/Time: 12/24/2018 2 0:09:47 Performing Organization Address City/State/Zipcode Phone Number [facility] MR thoracic spine without & with IV contrast (12/24/2018 5:35 PM CDT) Specimen Narrative Performed At FINAL REPORT [facility] MR, SPINE, THORACIC, WITH \\T\\ WITHOUT CO NTRAST, MR, SPINE, LUMBAR, WITH \\T\\ WITHOUT CONTRAST INDICATION: Multiple sclerosis, new even t MS r/o TECHNIQUE:Multiplanar, multisequence MRI of the thoracic and lumbar spine with and without intravenous contr ast. COMPARISON: MRI brain and cervical spine 12/23/2018 FINDINGS: THORACIC SPINE: Alignment: Normal Vertebral bodies: Vertebral body heights are maintained. No marrow edema. No aggressive osseous lesions. Spinal canal: No high-grade canal or for aminal stenosis. Cord: Large syrinx extends from the visu alized cervical spine throughout the thoracic spine and termin ates at the T11-12 level. No abnormal intrathecal enhancement. Soft tissues: Paraspinal soft tissues ar e unremarkable. LUMBAR SPINE: Nomenclature: L5-S1 is series 601 image 7. Alignment: Normal Vertebral bodies: Vertebral body heights are maintained. No marrow edema. No aggressive osseous lesions. Spinal canal: No high-grade canal or for aminal stenosis. Cord: Conus is of normal caliber and sig nal, and terminates at L1-2. Nerve roots of the cauda equina are of n ormal caliber and distribution. No abnormal intrathecal en hancement. Soft tissues: Paraspinal soft tissues ar e unremarkable. IMPRESSION: Syrinx extends from the visualized cervi sofia spine through the T11 level. Signed: Bushra Bob MD Report Verified Date/Time:12/24/2018 20:09:47 Procedure Note Interface, External Ris In - 12/24/2018 8:12 PM CDT FINAL REPORT MR, SPINE, THORACIC, WITH \\T\\ WITHOUT CO NTRAST, MR, SPINE, LUMBAR, WITH \\T\\ WITHOUT CONTRAST INDICATION: Multiple sclerosis, new even t MS r/o TECHNIQUE: Multiplanar, multisequence M RI of the thoracic and lumbar spine with and without intravenous contr ast. COMPARISON: MRI brain and cervical spine 12/23/2018 FINDINGS: THORACIC SPINE: Alignment: Normal Vertebral bodies: Vertebral body heights are maintained. No marrow edema. No aggressive osseous lesions. Spinal canal: No high-grade canal or for aminal stenosis. Cord: Large syrinx extends from the visu alized cervical spine throughout the thoracic spine and termin ates at the T11-12 level. No abnormal intrathecal enhancement. Soft tissues: Paraspinal soft tissues ar e unremarkable. LUMBAR SPINE: Nomenclature: L5-S1 is series 601 image 7. Alignment: Normal Vertebral bodies: Vertebral body heights are maintained. No marrow edema. No aggressive osseous lesions. Spinal canal: No high-grade canal or for aminal stenosis. Cord: Conus is of normal caliber and sig nal, and terminates at L1-2. Nerve roots of the cauda equina are of n ormal caliber and distribution. No abnormal intrathecal en hancement. Soft tissues: Paraspinal soft tissues ar e unremarkable. IMPRESSION: Syrinx extends from the visualized cervi sofia spine through the T11 level. Signed: Bushra Bob MD Report Verified Date/Time: 12/24/2018 2 0:09:47 Performing Organization Address City/State/Zipcode Phone Number [facility] MR cervical spine without & with IV contrast (12/23/2018 6:30 PM CDT) Specimen Narrative Performed At FINAL REPORT [employer] MR, BRAIN, WITH \\T\\ WITHOUT CONTRAST, MR , SPINE, CERVICAL, WITH \\T\\ WITHOUT CONTRAST INDICATION: Demyelinating disease withou t spinal cord symptoms Suspected demyelinating disease TECHNIQUE: Multiplanar, multisequence MR imaging of the brain and cervical spine prior to and following in travenous administration of contrast. COMPARISON: MRI brain 12/22/2018 FINDINGS: BRAIN: Intracranial: Again noted is pointed con figuration of the low-lying cerebellar tonsils consistent with Chiar i I malformation. There is no abnormal enhancement associa vesta with the T2 hyperintense white matter lesions predominantly withi n the subcortical bilateral frontal lobes and parietal lobes. Of not e, there are no callososeptal, brainstem, or cerebellar lesions. These are nonspecific but advanced for patient's a ge. No extra-axial collection, hydrocephalus or midline shift. Sinuses: No evidence of sinusitis. Masto ids are clear. Orbits: Globes are intact. Calvarium \\T\\ scalp: Unremarkable. CERVICAL SPINE: Alignment: Normal. Vertebral bodies: Vertebral body heights are maintained. No edema. No aggressive marrow signal. Spinal canal: No high-grade canal or for aminal stenosis. Spinal cord: Craniocervical junction is normal. As noted on the prior MRI brain, there is a small syrinx at th e craniocervical junction associated with the Chiari I malformatio n. In addition, there is extensive expansile T2/FLAIR hyperintens ity throughout the cervical and visualized upper thoracic cord, with out associated enhancement. Soft tissues: Paraspinal soft tissues ar e unremarkable. IMPRESSION: 1.Subcortical supratentorial white matte r lesions in a nonspecific configuration but advanced for age. No a bnormal intracranial enhancement. 2.Chiari I malformation. 3.Large syrinx involving the entire cerv ical and visualized upper thoracic cord. Signed: Bushra Bob MD Report Verified Date/Time:12/23/2018 20:04:20 Procedure Note Interface, External Ris In - 12/23/2018 8:06 PM CDT FINAL REPORT MR, BRAIN, WITH \\T\\ WITHOUT CONTRAST, MR , SPINE, CERVICAL, WITH \\T\\ WITHOUT CONTRAST INDICATION: Demyelinating disease withou t spinal cord symptoms Suspected demyelinating disease TECHNIQUE: Multiplanar, multisequence MR imaging of the brain and cervical spine prior to and following in travenous administration of contrast. COMPARISON: MRI brain 12/22/2018 FINDINGS: BRAIN: Intracranial: Again noted is pointed con figuration of the low-lying cerebellar tonsils consistent with Chiar i I malformation. There is no abnormal enhancement associa vesta with the T2 hyperintense white matter lesions predominantly withi n the subcortical bilateral frontal lobes and parietal lobes. Of not e, there are no callososeptal, brainstem, or cerebellar lesions. These are nonspecific but advanced for patient's a ge. No extra-axial collection, hydrocephalus or midline shift. Sinuses: No evidence of sinusitis. Masto ids are clear. Orbits: Globes are intact. Calvarium \\T\\ scalp: Unremarkable. CERVICAL SPINE: Alignment: Normal. Vertebral bodies: Vertebral body heights are maintained. No edema. No aggressive marrow signal. Spinal canal: No high-grade canal or for aminal stenosis. Spinal cord: Craniocervical junction is normal. As noted on the prior MRI brain, there is a small syrinx at th e craniocervical junction associated with the Chiari I malformatio n. In addition, there is extensive expansile T2/FLAIR hyperintens ity throughout the cervical and visualized upper thoracic cord, with out associated enhancement. Soft tissues: Paraspinal soft tissues ar e unremarkable. IMPRESSION: 1.Subcortical supratentorial white matte r lesions in a nonspecific configuration but advanced for age. No a bnormal intracranial enhancement. 2.Chiari I malformation. 3.Large syrinx involving the entire cerv ical and visualized upper thoracic cord. Signed: Bushra Bob MD Report Verified Date/Time: 12/23/2018 2 0:04:20 Performing Organization Address City/State/Zipcode Phone Number [facility] MR brain without & with IV contrast (12/23/2018 6:30 PM CDT) Specimen Narrative Performed At FINAL REPORT [facility] MR, BRAIN, WITH \\T\\ WITHOUT CONTRAST, MR , SPINE, CERVICAL, WITH \\T\\ WITHOUT CONTRAST INDICATION: Demyelinating disease withou t spinal cord symptoms Suspected demyelinating disease TECHNIQUE: Multiplanar, multisequence MR imaging of the brain and cervical spine prior to and following in travenous administration of contrast. COMPARISON: MRI brain 12/22/2018 FINDINGS: BRAIN: Intracranial: Again noted is pointed con figuration of the low-lying cerebellar tonsils consistent with Chiar i I malformation. There is no abnormal enhancement associa vesta with the T2 hyperintense white matter lesions predominantly withi n the subcortical bilateral frontal lobes and parietal lobes. Of not e, there are no callososeptal, brainstem, or cerebellar lesions. These are nonspecific but advanced for patient's a ge. No extra-axial collection, hydrocephalus or midline shift. Sinuses: No evidence of sinusitis. Masto ids are clear. Orbits: Globes are intact. Calvarium \\T\\ scalp: Unremarkable. CERVICAL SPINE: Alignment: Normal. Vertebral bodies: Vertebral body heights are maintained. No edema. No aggressive marrow signal. Spinal canal: No high-grade canal or for aminal stenosis. Spinal cord: Craniocervical junction is normal. As noted on the prior MRI brain, there is a small syrinx at th e craniocervical junction associated with the Chiari I malformatio n. In addition, there is extensive expansile T2/FLAIR hyperintens ity throughout the cervical and visualized upper thoracic cord, with out associated enhancement. Soft tissues: Paraspinal soft tissues ar e unremarkable. IMPRESSION: 1.Subcortical supratentorial white matte r lesions in a nonspecific configuration but advanced for age. No a bnormal intracranial enhancement. 2.Chiari I malformation. 3.Large syrinx involving the entire cerv ical and visualized upper thoracic cord. Signed: Bushra Bob MD Report Verified Date/Time:12/23/2018 20:04:20 Procedure Note Interface, External Ris In - 12/23/2018 8:06 PM CDT FINAL REPORT MR, BRAIN, WITH \\T\\ WITHOUT CONTRAST, MR , SPINE, CERVICAL, WITH \\T\\ WITHOUT CONTRAST INDICATION: Demyelinating disease withou t spinal cord symptoms Suspected demyelinating disease TECHNIQUE: Multiplanar, multisequence MR imaging of the brain and cervical spine prior to and following in travenous administration of contrast. COMPARISON: MRI brain 12/22/2018 FINDINGS: BRAIN: Intracranial: Again noted is pointed con figuration of the low-lying cerebellar tonsils consistent with Chiar i I malformation. There is no abnormal enhancement associa vesta with the T2 hyperintense white matter lesions predominantly withi n the subcortical bilateral frontal lobes and parietal lobes. Of not e, there are no callososeptal, brainstem, or cerebellar lesions. These are nonspecific but advanced for patient's a ge. No extra-axial collection, hydrocephalus or midline shift. Sinuses: No evidence of sinusitis. Masto ids are clear. Orbits: Globes are intact. Calvarium \\T\\ scalp: Unremarkable. CERVICAL SPINE: Alignment: Normal. Vertebral bodies: Vertebral body heights are maintained. No edema. No aggressive marrow signal. Spinal canal: No high-grade canal or for aminal stenosis. Spinal cord: Craniocervical junction is normal. As noted on the prior MRI brain, there is a small syrinx at th e craniocervical junction associated with the Chiari I malformatio n. In addition, there is extensive expansile T2/FLAIR hyperintens ity throughout the cervical and visualized upper thoracic cord, with out associated enhancement. Soft tissues: Paraspinal soft tissues ar e unremarkable. IMPRESSION: 1.Subcortical supratentorial white matte r lesions in a nonspecific configuration but advanced for age. No a bnormal intracranial enhancement. 2.Chiari I malformation. 3.Large syrinx involving the entire cerv ical and visualized upper thoracic cord. Signed: Bushra Bob MD Report Verified Date/Time: 12/23/2018 2 0:04:20 Performing Organization Address City/State/Zipcode Phone Number [facility] MR brain without IV contrast (12/22/2018 7:27 PM CDT) Specimen Narrative Performed At FINAL REPORT [facility] Exam: MRI brain without contrast. Comparison:None. Clinical indication: Demyelinating disea se without spinal cord symptoms Work up demyelinating disease Technique: Multiplanar multi sequential MR imaging of the brain was performed without the administration of intravenous contrast. Findings: There are multiple small FLAIR hyperinte nsities in the bilateral subcortical and periventricular white ma tter without mass effect in keeping with known history of demyelinat ing disease. There is inferior displacement of the bi lateral cerebellar tonsils through the foramen magnum with peglike tonsils compatible with a Chiari I malformation. There is a syrinx in the visualized upper cervical cord (C2-C5). There is no intracranial mass, mass effe ct, extra-axial collection, hydrocephalus or herniation.There is no restricted diffusion to suggest an acute infarct. There is no ab normality on susceptibility sequences to suggest hemorrhage or hemos iderin deposition. The skull base flow-voids are seen in ke eping with their patency. The visualized paranasal sinuses and mas toid air cells are clear. The orbits, sella and parasellar regions are unremarkable. Impression: Multiple small FLAIR hyperintensities in the supratentorial brain in keeping with known history of demyelinat ing disease. Chiari I malformation with a syrinx in t he upper cervical cord. No acute infarct, hemorrhage or mass eff ect. Signed: Scott Jorge MD Report Verified Date/Time:12/22/2018 20:03:54 Procedure Note Interface, External Ris In - 12/22/2018 8:13 PM CDT FINAL REPORT Exam: MRI brain without contrast. Comparison: None. Clinical indication: Demyelinating disea se without spinal cord symptoms Work up demyelinating disease Technique: Multiplanar multi sequential MR imaging of the brain was performed without the administration of intravenous contrast. Findings: There are multiple small FLAIR hyperinte nsities in the bilateral subcortical and periventricular white ma tter without mass effect in keeping with known history of demyelinat ing disease. There is inferior displacement of the bi lateral cerebellar tonsils through the foramen magnum with peglike tonsils compatible with a Chiari I malformation. There is a syrinx in the visualized upper cervical cord (C2-C5). There is no intracranial mass, mass effe ct, extra-axial collection, hydrocephalus or herniation. There is n o restricted diffusion to suggest an acute infarct. There is no ab normality on susceptibility sequences to suggest hemorrhage or hemos iderin deposition. The skull base flow-voids are seen in ke eping with their patency. The visualized paranasal sinuses and mas toid air cells are clear. The orbits, sella and parasellar regions are unremarkable. Impression: Multiple small FLAIR hyperintensities in the supratentorial brain in keeping with known history of demyelinat ing disease. Chiari I malformation with a syrinx in t he upper cervical cord. No acute infarct, hemorrhage or mass eff ect. Signed: Scott Jorge MD Report Verified Date/Time: 12/22/2018 2 0:03:54 Performing Organization Address City/State/Zipcode Phone Number [facility] Urinalysis w/Microscopic + Reflex to Culture (12/22/2018 10:20 AM CDT) Color, UA Light Yellow [facility] Clarity, UA Clear [facility] Specific [place], UA 1.014 1.001 - 1.[address] [facility] pH, UA 7.0 5.0 - 8.[address] [facility] Protein, UA Negative Negative [facility] Glucose, UA Negative Negative [facility] Ketones, UA Negative Negative [facility] Bilirubin, UA Negative Negative [facility] Blood, UA Negative Negative [facility] Nitrite, UA Negative Negative [facility] Leukocytes, UA Trace (A) Negative [facility] Urobilinogen, UA 0.2 0.2 - 1.0 mg/dL [facility] RBC, UA 1 /HPF [facility] WBC, UA 2 /HPF [facility] Bacteria, UA Occasional [facility] Mucus Occasional [facility] Squam Epithel, UA 10 /HPF [facility] Hyaline Casts, UA 2 /LPF [facility] Specimen Source [facility] Specimen Urine Performing Organization Address City/State/Zipcode Phone Number [facility] [address] [place] [address] G[place] Hemoglobin A1c (12/22/2018 9:26 AM CDT) Hemoglobin A1C 6.2 (H) 4.3 - 6.1 % [facility] Specimen Blood Performing Organization Address City/[facility]/Zipcode Phone Number [facility] [address] [place] [address] [place] Lipid panel (12/22/2018 9:26 AM CDT) Triglycerides 195 mg/dL [facility] Cholesterol 144 mg/dL [facility] HDL 33 mg/dL [facility] LDL Calculated 72 mg/dL [facility] Specimen Blood Narrative Performed At Triglyceride Reference Range: [facility] Low Risk <150 [id number] High Risk 200-499 Very High Risk>=500 Cholesterol Reference Range: Low Risk <200 [id number] High Risk>240 HDL Cholesterol Reference Range: Low Risk >=60 High Risk <40 LDL Cholesterol Reference Range: Optimal<100 Near [id number] Very High >=190 Performing Organization Address City/[facility] Phone Number [address] [address] CENTER Vitamin B12 and Folate (12/22/2018 9:25 AM CDT) Vitamin B12 281 213 - 816 pg/mL [facility] Folate 11.9 >=7.0 ng/mL [facility] Specimen Blood Performing Organization Address City/[facility] Phone Number [address] [address] [place] TSH/Free T4 If Indicated (12/22/2018 9:25 AM CDT) TSH 1.19 0.35 - 4.94 uIU/mL [facility] Specimen Blood Performing Organization Address [facility] Phone Number [address] [address] CENTER after 11/19/2018 Advance Directives For more information, please contact:[address] [phone] Code Status Date Activated Date Inactivated Comments Full Code 12/22/2018 8:55 AM 12/31/2018 1:41 PM This code status was determined by: Patient
--- OUTSIDE RECORDS SUMMARY | 2019-11-20 21:31 | XMS REPORT | Summary of Care ---
:1980 Author Organization [facility] [place] Address [address] [place] [address]- Encounter HQ Jarvisntr_mark(FIN) [id number] Date(s): 11/18/19 - 11/18/19 [facility] [address] [place] [address]- [phone] Discharge Disposition: Home or Self Care Attending Physician: Franklin Vasquez MD Vital Signs Most recent to oldest [Reference Range]: 1 Height 152.4 cm (11/18/19 2:10 PM) Blood Pressure [90-140/60-90 mmHg] 115/89 mmHg (11/18/19 2:10 PM) Respiratory Rate [14-20 BRMIN] 16 BRMIN (11/18/19 2:10 PM) Peripheral Pulse Rate [60-100 bpm] 73 bpm (11/18/19 2:10 PM) Weight 100.455 kg (11/18/19 2:10 PM) Body Mass Index 43.25 m2 (11/18/19 2:10 PM) Problem List Condition Effective Dates Status Health Status Informant Anemia(Confirmed) Active Syrinx(Confirmed) Active Morbid obesity(Confirmed) Active MS (multiple sclerosis)(Confirmed) Active Paresthesia(Confirmed) Active Allergies, Adverse Reactions, Alerts No Known Medication Allergies Medications No Known Medications Results No data available for this section Immunizations No data available for this section Procedures Procedure Date Related Diagnosis Body Site Status Cervical laminectomy Complet ed Social History Social History Type Response Smoking Status Never smoker; Exposure to To bacco Smoke None; Cigarette Smoking Last 365 Days No; Reg Smoking Cessation Counseling No entered on: 11/18/19 Assessment and Plan No data available for this section
--- OUTSIDE RECORDS SUMMARY | 2019-11-20 21:32 | XMS REPORT | Continuity of Care Document ---
:1980 Author Organization [facility] t Address [address] [place] [address] Care Team Providers Name Role Phone Pcp, No Primary Care Physician Unavailable Franklin Vasquez Attending Clinician Fabio Mohr Attending Clinician Sanna Hoyt MD Attending Clinician Vijay Lenz MD Attending Clinician [phone] Merchant MUHAMMAD Attending Clinician Gaurav Beaulieu MD Attending Clinician Mega MUHAMMAD Attending Clinician Sanna HOYT Attending Clinician Unavailable VIJAY LENZ Admitting Clinician Unavailable Problems Condition Condition Condition Status Onset Resolution Last Treating Co mments Source Name Details Category Date Date Treatment Clinician Date 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 12-29 Ana kes - on type I on type I 00:00: Medi sofia 00 Center Status Status Disease Active [facility] post brain post brain 12-29 Ana kes - surgery in surgery in 00:00: Me dical prior 48 prior 48 00 Center hours hours Left sided Left sided Disease Active [facility] numbness numbness 12-22 [facility] Disease of Problem Active 2019-11-21 M manuel the 01:10:35 l 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 11/21/2019 [facility] Morbid Problem Active 2019-11-21 Memor ia obesity 01:10:35 l (disorder) Morbid Herm maría obesity (disorder) Active Problem 11/21/2019 [facility] Multiple Problem Active 2019-11-21 Mem oria sclerosis 01:10:35 l (disorder) Multiple He rmann sclerosis (disorder) Active Problem 11/21/2019 [facility] Paresthesi Problem Active 2019-11-21 M emoria a 01:10:35 l (finding) Ty Paresthesi a (finding) Active Problem 11/21/2019 [facility] Anemia Problem Active 2019-11-21 Memor ia (disorder) 01:10:35 l Anemia [place] (disorder) Active Problem 11/21/2019 [facility] Allergies, Adverse Reactions, Alerts Allergy Allergy Status Severity Reaction(s) Onset Inactive Treating Comm ents Source Name Type Date Date Clinician No Known No Known Active Memori a Medicati Medicati l on on Ty Allergie Allergdustin s s Social History Social Habit Start Date Stop Date Quantity Comments Source Sex Assigned At [facility] Smoking Status Start Date Stop Date Source Never smoker [facility] Medications Ordered Filled Start Stop Current Ordering Indication Dosage Frequency Signature Comments Components Source Medication Medication Date Date Medication? Clinician (SIG) Name Name 1 ML 0 Yes 40 mg, Memoria glatiramer 4-07 SUB-Q, l acetate 40 19:23: Q-M-W-F, # H ermann MG/ML 00 12 pkt, 3 Prefilled Refill(s), Syringe Pharmacy: [Copaxone] [facility] 808 gabapentin 2019-0 Yes 0 Memoria 300 MG Oral 2-14 Refill(s) l Capsule 18:21: 00 gabapentin 2019-0 No PO, 0 Memori a 2-14 Refill(s) l 17:20: 00 atorvastati 2018-04- No 10mg QD Take [address] [facility] [address] [facility] (LIPITOR) 012-30 tablet (10 L ukes - 10 MG 00:00: 23:59 mg total) Medica l tablet 00 :00 by mouth Center nightly. gabapentin 2018-04- No 600mg [id number] Take [address] (NEURONTIN) 0-03-01 [id number] capsules [facility] - 300 MG 00:00: 23:59 3D (600 mg Medical capsule 00 :00 total) by Center mouth 3 (three) times daily for 60 days. Vital Signs Vital Name Observation Time Observation Value Comments Source Systolic (mm Hg) 2019-11-18 19:10:00 Niall rial Ty Diastolic (mm Hg) 2019-11-18 19:10:00 [facility] orial Ty Heart Rate 2019-11-18 19:10:00 [facility] Ty Respitory Rate 2019-11-18 19:10:00 [facility] al [place] Height 2019-11-18 19:10:00 152.4 cm [facility] Weight 2019-11-18 19:10:00 [facility] BMI Calculated 2019-11-18 19:10:00 Memori al Ty Systolic (mm Hg) 2019-05-16 17:18:00 Niall rial Ty Diastolic (mm Hg) 2019-05-16 17:18:00 [facility] orial [place] Heart Rate 2019-05-16 17:18:00 [facility] [place] Respitory Rate 2019-05-16 17:18:00 [facility] al [place] Height 2019-05-16 17:18:00 154.94 cm [facility] Weight 2019-05-16 17:18:00 [facility] BMI Calculated 2019-05-16 17:18:00 Memori al Ty Systolic blood 2018-12-31 07:00:00 143 mm[Hg] [facility] Diastolic blood 2018-12-31 07:00:00 94 mm[Hg] [facility] Heart rate 2018-12-31 07:00:00 75 /min [facility] Body temperature 2018-12-31 07:00:00 36.83 Eri [facility] Respiratory rate 2018-12-31 07:00:00 20 /min [facility] Oxygen saturation in 2018-12-31 07:00:00 93 /min [facility] Arterial blood by Medical nter Pulse oximetry Body weight Measured 2018-12-27 15:00:00 97.024 kg [facility] BMI 2018-12-27 15:00:00 39.12 kg/m2 [facility] Body height 2018-12-22 08:34:00 157.5 cm [facility] Procedures Procedure Date / Time Performing Clinician Source Performed REPORT OF PROCEDURE - 2019-01-01 15:02:02 Provider, Cesar [facility] RHYTHM STRIP - SCAN 2019-01-01 15:01:53 Provider, [facility] BASIC METABOLIC PANEL (7) 2018-12-31 05:26:00 Kody Hair [facility] CBC W/PLT COUNT & AUTO 2018-12-31 05:26:00 Laxmi [facility] BASIC METABOLIC PANEL (7) 2018-12-30 03:37:00 Laxmi [facility] CBC W/PLT COUNT & AUTO 2018-12-30 03:37:00 Laxmi [facility] BASIC METABOLIC PANEL (7) 2018-12-29 07:29:00 Kendall Maguire [facility] PT/APTT 2018-12-29 07:29:[address] [facility] PROTHROMBIN TIME/INR 2018-12-29 07:29:[address] [facility] CBC W/PLT COUNT & AUTO 2018-12-29 07:29:00 Kendall Maguire [facility] BASIC METABOLIC PANEL (7) 2018-12-28 03:54:00 Danilo Lenz [facility] MAGNESIUM 2018-12-28 03:54:00 Nataly Lenz [facility] PHOSPHORUS 2018-12-28 03:54:00 [facility] CBC (HEMOGRAM ONLY) 2018-12-28 03:54:00 Nataly Lenz [facility] RHYTHM STRIP - SCAN 2018-12-27 12:14:58 Provider, Cesar [facility] CRANIOTOMY/ 2018-12-27 09:45:00 Iker Ayoub [facility] - CRANIECTOMY,SUBOCCIPITAL [facility] EXPLORATION/ DECOMPRESSION LAMINECTOMY,CERVICAL 2018-12-27 09:45:00 Iker Ayoub [facility] - FACETECTOMY/ [facility] FORAMINOTOMY/ DECOMPRESSION HCG, QUANTITATIVE, 2018-12-27 09:13:00 Parish Colby [facility] BASIC METABOLIC PANEL (7) 2018-12-25 11:11:00 Mendez Box [facility] PT/APTT 2018-12-25 11:11:00 Mendez Box [facility] CBC W/PLT COUNT & AUTO 2018-12-25 11:11:00 Mendez Box [facility] MR LUMBAR SPINE WITH & 2018-12-24 17:35:00 Nataly Lenz [facility] - WITHOUT IV CONTRAST [facility] MR THORACIC SPINE WITH & 2018-12-24 17:35:00 Sajan Lenz [facility] - WITHOUT IV CONTRAST [facility] MR BRAIN WITH & WITHOUT 2018-12-23 18:30:00 [facility] Calvin Guidry [facility] - IV CONTRAST [facility] MR CERVICAL SPINE WITH & 2018-12-23 18:30:00 Sajan Lenz [facility] - WITHOUT IV CONTRAST [facility] MR BRAIN WITHOUT IV 2018-12-22 19:27:00 Nataly Lenz [facility] - CONTRAST [facility] URINALYSIS W/ REFLEX 2018-12-22 10:20:00 Nataly Lenz [facility] - URINE CULTURE [facility] BASIC METABOLIC PANEL (7) 2018-12-22 09:26:00 Danilo Lenz [facility] MAGNESIUM 2018-12-22 09:26:00 Nataly Lenz [facility] PHOSPHORUS 2018-12-22 09:26:00 Nataly Lenz [facility] LIPID PANEL 2018-12-22 09:26:00 [facility] HEMOGLOBIN A1C 2018-12-22 09:26:00 [facility] CBC W/PLT COUNT & AUTO 2018-12-22 09:26:00 [facility] TSH/FREE T4 IF INDICATED 2018-12-22 09:25:00 [facility] Mo eneida [facility] VITAMIN B12 AND FOLATE 2018-12-22 09:25:00 [facility] Cervical laminectomy [facility] Encounters Start End Encounter Admission Attending Care Care Encounter Source Date/Time Date/Time Type Type Clinicians Facility Department ID 2019-11-18 2019-11-18 Outpatient RAQUEL VasquezSCHER [id number] 13:30:00 23:59:59 Franklin 02 Artur 2019-07-18 2019-07-19 Outpatient MISCHJOSELYN PULIDOSCHER [id number] 14:01:48 23:59:59 2019-07-08 2019-07-08 Outpatient RAQUEL VasquezSCHER [id number] 14:15:00 23:59:59 Franklin Artur 2019-05-26 2019-05-27 Outpatient MHMISCHER MISCHER [id number] 10:26:28 23:59:59 2019-05-16 2019-05-16 Outpatient RAQUEL Vasquez MISCHER [id number] 11:30:00 23:59:59 Franklin 00 [facility] 2019-01-16 2019-01-16 Office SHABNAM Drew [id number] 13:41:26 14:26:10 Visit Jimmy AMBULATOR [id number] Fabio Y [id number] Results Test Description Test Time Test Comments Results Result Comments Source Basic Metabolic Panel 2018-12-31 07:31:00 Test Item Value Reference Range Interpretation Comme nts Sodium (test code = 2951-2) 136 meq/L 136-145 Potassium (test code = 4.1 meq/L 3.5-5.1 2823-3) Chloride (test code = 102 meq/L 98-107 5-0) CO2 (test code = 8-9) 26 meq/L 22-29 BUN (test code = 3094-0) 8 mg/dL 7-21 Creatinine (test code = 0.63 mg/dL 0.57-1.25 2160-0) Glucose (test code = 2345-7) 102 mg/dL 70-105 Calcium (test code = 8.7 mg/dL 8.4-10.2 71099-8) EGFR (test code = 15787-9) 105 mL/min/1.73 sq m ESTIMATED GFR IS NOT ACCURATE CRE ATININE CLEARANCE IN [place] EDICTING GLOMERULAR FILT RATION RATE. ESTIMATED GFR I S NOT APPLICABLE FOR DIALYSIS PATIENTS. [facility] MET[facility]OLIC [id number] 07:31:00 Test Item Value Reference Range Interpretation Comments SODIUM (BEAKER) 136 meq/L 136-145 (test code = 381) POTASSIUM (BEAKER) 4.1 meq/L 3.5-5.1 (test code = 379) CHLORIDE (BEAKER) 102 meq/L 98-107 (test code = 382) CO2 (BEAKER) (test 26 meq/L 22-29 code = 355) BLOOD UREA NITROGEN 8 mg/dL 7-21 (BEAKER) (test code = 354) CREATININE (BEAKER) 0.63 mg/dL 0.57-1.25 (test code = 358) GLUCOSE RANDOM 102 mg/dL 70-105 (BEAKER) (test code = 652) CALCIUM (BEAKER) 8.7 mg/dL 8.4-10.2 (test code = 697) EGFR (BEAKER) (test 105 mL/min/1.73 ESTIM ATED GFR IS code = 1092) sq m NOT ACCURATE CREATININE CLEARANCE IN PREDICTING GLOMERULAR FILTRATION RATE . ESTIMATED GFR I S NOT APPLICABLE FOR DIALYSIS PATIEN TS. CBC with platelet count + automated [id number] 06:49:00 Test Item Value Reference Range Interpretation Comments WBC (test code = 6690-2) 10.1 3.5- 10.5 K/L RBC (test code = 789-8) 3.24 3.93- 5.22 M/L L MCHC (test code = 786-4) 30.8 32.2- 35.5 GM/DL L Hematocrit (test code = 4544-3) 28.9 % 34.1-44.9 L MCV (test code = 787-2) 89.2 fL 79.4-94.8 MCH (test code = 785-6) 27.5 pg 25.6-32.2 RDW (test code = 788-0) 14.8 % 11.7-14.4 H Platelets (test code = 777-3) 305 150- 450 K/CU MM MPV (test code = 24237-0) 11.0 fL 9.4-12.3 nRBC (test code = 413) 0 0- 0 /100 WBC % Neutros (test code = 429) 66 % % Lymphs (test code = 430) 19 % % Monos (test code = 431) 10 % % Eos (test code = 432) 4 % % Baso (test code = 437) 0 % # Neutros (test code = 670) 6.71 1.56- 6.13 K/L H # Lymphs (test code = 414) 1.91 1.18- 3.74 K/L # Monos (test code = 415) 1.05 0.24- 0.36 K/L H # Eos (test code = 416) 0.39 0.04- 0.36 K/L H # Baso (test code = 417) 0.03 0.01- 0.08 K/L Immature Granulocytes-Relative 0 % 0-1 (test code = 2801) Lab Interpretation (test code = Abnormal 95323-2) [facility] W/PLT COUNT & AUTO [id number] 06:49:00 Test Item Value Reference Range Interpretation Comments WHITE BLOOD CELL COUNT (BEAKER) 10.1 K/ L 3.5-10.5 (test code = 775) RED BLOOD CELL COUNT (BEAKER) 3.24 M/ L 3.93-5.22 L (test code = 761) HEMOGLOBIN (BEAKER) (test code = 8.9 GM/DL 11.2-15.7 L 410) HEMATOCRIT (BEAKER) (test code = 28.9 % 34.1-44.9 L 411) MEAN CORPUSCULAR VOLUME (BEAKER) 89.2 fL 79.4-94.8 (test code = 753) MEAN CORPUSCULAR HEMOGLOBIN 27.5 pg 25.6-32.2 (BEAKER) (test code = 751) MEAN CORPUSCULAR HEMOGLOBIN CONC 30.8 GM/DL 32.2-35.5 L (BEAKER) (test code = 752) RED CELL DISTRIBUTION WIDTH 14.8 % 11.7-14.4 H (BEAKER) (test code = 412) PLATELET COUNT (BEAKER) (test 305 K/CU MM 150-450 code = 756) MEAN PLATELET VOLUME (BEAKER) 11.0 fL 9.4-12.3 (test code = 754) NUCLEATED RED BLOOD CELLS 0 /100 WBC 0-0 (BEAKER) (test code = 413) NEUTROPHILS RELATIVE PERCENT 66 % (BEAKER) (test code = 429) LYMPHOCYTES RELATIVE PERCENT 19 % (BEAKER) (test code = 430) MONOCYTES RELATIVE PERCENT 10 % (BEAKER) (test code = 431) EOSINOPHILS RELATIVE PERCENT 4 % (BEAKER) (test code = 432) BASOPHILS RELATIVE PERCENT 0 % (BEAKER) (test code = 437) NEUTROPHILS ABSOLUTE COUNT 6.71 K/ L 1.56-6.13 H (BEAKER) (test code = 670) LYMPHOCYTES ABSOLUTE COUNT 1.91 K/ L 1.18-3.74 (BEAKER) (test code = 414) MONOCYTES ABSOLUTE COUNT (BEAKER) 1.05 K/ L 0.24-0.36 H (test code = 415) EOSINOPHILS ABSOLUTE COUNT 0.39 K/ L 0.04-0.36 H (BEAKER) (test code = 416) BASOPHILS ABSOLUTE COUNT (BEAKER) 0.03 K/ L 0.01-0.08 (test code = 417) IMMATURE GRANULOCYTES-RELATIVE 0 % 0-1 PERCENT (BEAKER) (test code = 2801) BASIC METABOLIC [id number] 06:00:00 Test Item Value Reference Range Interpretation Comments SODIUM (BEAKER) 137 meq/L 136-145 (test code = 381) POTASSIUM (BEAKER) 3.8 meq/L 3.5-5.1 (test code = 379) CHLORIDE (BEAKER) 105 meq/L 98-107 (test code = 382) CO2 (BEAKER) (test 24 meq/L 22-29 code = 355) BLOOD UREA NITROGEN 6 mg/dL 7-21 L (BEAKER) (test code = 354) CREATININE (BEAKER) 0.56 mg/dL 0.57-1.25 L (test code = 358) GLUCOSE RANDOM 147 mg/dL 70-105 H (BEAKER) (test code = 652) CALCIUM (BEAKER) 8.4 mg/dL 8.4-10.2 (test code = 697) EGFR (BEAKER) (test 120 mL/min/1.73 ESTIM ATED GFR IS code = 1092) sq m NOT ACCURATE CREATININE CLEARANCE IN PREDICTING GLOMERULAR FILTRATION RATE . ESTIMATED GFR I S NOT APPLICABLE FOR DIALYSIS PATIEN TS. CBC W/PLT COUNT & AUTO [id number] 05:31:00 Test Item Value Reference Range Interpretation Comments WHITE BLOOD CELL COUNT (BEAKER) 9.1 K/ L 3.5-10.5 (test code = 775) RED BLOOD CELL COUNT (BEAKER) 3.20 M/ L 3.93-5.22 L (test code = 761) HEMOGLOBIN (BEAKER) (test code = 8.7 GM/DL 11.2-15.7 L 410) HEMATOCRIT (BEAKER) (test code = 29.1 % 34.1-44.9 L 411) MEAN CORPUSCULAR VOLUME (BEAKER) 90.9 fL 79.4-94.8 (test code = 753) MEAN CORPUSCULAR HEMOGLOBIN 27.2 pg 25.6-32.2 (BEAKER) (test code = 751) MEAN CORPUSCULAR HEMOGLOBIN CONC 29.9 GM/DL 32.2-35.5 L (BEAKER) (test code = 752) RED CELL DISTRIBUTION WIDTH 15.3 % 11.7-14.4 H (BEAKER) (test code = 412) PLATELET COUNT (BEAKER) (test 247 K/CU MM 150-450 code = 756) MEAN PLATELET VOLUME (BEAKER) 10.9 fL 9.4-12.3 (test code = 754) NUCLEATED RED BLOOD CELLS 0 /100 WBC 0-0 (BEAKER) (test code = 413) NEUTROPHILS RELATIVE PERCENT 66 % (BEAKER) (test code = 429) LYMPHOCYTES RELATIVE PERCENT 22 % (BEAKER) (test code = 430) MONOCYTES RELATIVE PERCENT 9 % (BEAKER) (test code = 431) EOSINOPHILS RELATIVE PERCENT 2 % (BEAKER) (test code = 432) BASOPHILS RELATIVE PERCENT 0 % (BEAKER) (test code = 437) NEUTROPHILS ABSOLUTE COUNT 5.94 K/ L 1.56-6.13 (BEAKER) (test code = 670) LYMPHOCYTES ABSOLUTE COUNT 2.02 K/ L 1.18-3.74 (BEAKER) (test code = 414) MONOCYTES ABSOLUTE COUNT (BEAKER) 0.85 K/ L 0.24-0.36 H (test code = 415) EOSINOPHILS ABSOLUTE COUNT 0.20 K/ L 0.04-0.36 (BEAKER) (test code = 416) BASOPHILS ABSOLUTE COUNT (BEAKER) 0.02 K/ L 0.01-0.08 (test code = 417) IMMATURE GRANULOCYTES-RELATIVE 0 % 0-1 PERCENT (BEAKER) (test code = 2801) PT/[id number] 08:56:00 Test Item Value Reference Range Interpretation Comments Protime (test code = 13.1 11.9- 14.2 5902-2) seconds INR (test code = 1.0 <=5.9 6301-6) PTT (test code = 32.5 22.5- 36.0 48730-4) seconds FRANNIE (test code = FRANNIE) Effective 08/28/2018: PT Reference Range ChangeNew: 11.9-14.2 Previous: 11.7-14.7 RECOMMENDED COUMADIN/WARFARIN INR THERAPY RANGESSTANDARD DOSE: 2.0-3.0 Includes: PROPHYLAXIS for venous thrombosis, systemic embolization; TREATMENT for venous thrombosis and/or pulmonary embolus.HIGH RISK: Target INR is 2.5-3.5 for patients wiht mechanical heart valves. Lab Interpretation Normal (test code = 26314-3) [facility][id number] 08:56:00 Test Item Value Reference Range Interpretation Comments PROTIME (BEAKER) (test code = 13.1 seconds 11.9-14.2 759) INR (BEAKER) (test code = 370) 1.0 <=5.9 PARTIAL THROMBOPLASTIN TIME 32.5 seconds 22.5-36.0 (BEAKER) (test code = 760) Effective 08/28/2018: PT Reference Range ChangeNew: 11.9-14.2 Previous: 11.7- 14.7RECOMMENDED COUMADIN/WARFARIN INR THERAPY RANGESSTANDARD DOSE: 2.0-3.0 Includes: PROPHYLAXIS for venous thrombosis, systemic embolization; TREATMENT for venous thrombosis and/or pulmonary embolus.HIGH RISK: Target INR is2.5-3.5 for patients wiht mechanical heart valves.Prothrombin time/[id number] 08:52:00 Test Item Value Reference Range Interpretation Comments Protime (test code = 13.1 11.9- 14.2 5902-2) seconds INR (test code = 1.0 <=5.9 6301-6) FRANNIE (test code = FRANNIE) Effective 08/28/2018: PT Reference Range ChangeNew: 11.9-14.2 Previous: 11.7-14.7 RECOMMENDED COUMADIN/WARFARIN INR THERAPY RANGESSTANDARD DOSE: 2.0-3.0 Includes: PROPHYLAXIS for venous thrombosis, systemic embolization; TREATMENT for venous thrombosis and/or pulmonary embolus.HIGH RISK: Target INR is 2.5-3.5 for patients wiht mechanical heart valves. Lab Interpretation Normal (test code = 97296-8) [facility]/[id number] 08:52:00 Test Item Value Reference Range Interpretation Comments PROTIME (BEAKER) (test code = 13.1 seconds 11.9-14.2 759) INR (BEAKER) (test code = 370) 1.0 <=5.9 Effective 08/28/2018: PT Reference Range ChangeNew: 11.9-14.2 Previous: 11.7- 14.7RECOMMENDED COUMADIN/WARFARIN INR THERAPY RANGESSTANDARD DOSE: 2.0-3.0 Includes: PROPHYLAXIS for venous thrombosis, systemic embolization; TREATMENT for venous thrombosis and/or pulmonary embolus.HIGH RISK: Target INR is2.5-3.5 for patients wiht mechanical heart valves.BASIC METABOLIC [id number] 08:49:00 Test Item Value Reference Range Interpretation Comments SODIUM (BEAKER) 136 meq/L 136-145 (test code = 381) POTASSIUM (BEAKER) 3.7 meq/L 3.5-5.1 (test code = 379) CHLORIDE (BEAKER) 101 meq/L 98-107 (test code = 382) CO2 (BEAKER) (test 28 meq/L 22-29 code = 355) BLOOD UREA NITROGEN 7 mg/dL 7-21 (BEAKER) (test code = 354) CREATININE (BEAKER) 0.62 mg/dL 0.57-1.25 (test code = 358) GLUCOSE RANDOM 180 mg/dL 70-105 H (BEAKER) (test code = 652) CALCIUM (BEAKER) 8.2 mg/dL 8.4-10.2 L (test code = 697) EGFR (BEAKER) (test 107 mL/min/1.73 ESTIM ATED GFR IS code = 1092) sq m NOT ACCURATE CREATININE CLEARANCE IN PREDICTING GLOMERULAR FILTRATION RATE . ESTIMATED GFR I S NOT APPLICABLE FOR DIALYSIS PATIEN TS. CBC W/PLT COUNT & AUTO [id number] 08:47:00 Test Item Value Reference Range Interpretation Comments WHITE BLOOD CELL COUNT (BEAKER) 12.9 K/ L 3.5-10.5 H (test code = 775) RED BLOOD CELL COUNT (BEAKER) 3.11 M/ L 3.93-5.22 L (test code = 761) HEMOGLOBIN (BEAKER) (test code = 8.6 GM/DL 11.2-15.7 L 410) HEMATOCRIT (BEAKER) (test code = 27.8 % 34.1-44.9 L 411) MEAN CORPUSCULAR VOLUME (BEAKER) 89.4 fL 79.4-94.8 (test code = 753) MEAN CORPUSCULAR HEMOGLOBIN 27.7 pg 25.6-32.2 (BEAKER) (test code = 751) MEAN CORPUSCULAR HEMOGLOBIN CONC 30.9 GM/DL 32.2-35.5 L (BEAKER) (test code = 752) RED CELL DISTRIBUTION WIDTH 15.6 % 11.7-14.4 H (BEAKER) (test code = 412) PLATELET COUNT (BEAKER) (test 255 K/CU MM 150-450 code = 756) MEAN PLATELET VOLUME (BEAKER) 11.1 fL 9.4-12.3 (test code = 754) NUCLEATED RED BLOOD CELLS 0 /100 WBC 0-0 (BEAKER) (test code = 413) NEUTROPHILS RELATIVE PERCENT 76 % (BEAKER) (test code = 429) LYMPHOCYTES RELATIVE PERCENT 12 % (BEAKER) (test code = 430) MONOCYTES RELATIVE PERCENT 11 % (BEAKER) (test code = 431) EOSINOPHILS RELATIVE PERCENT 0 % (BEAKER) (test code = 432) BASOPHILS RELATIVE PERCENT 0 % (BEAKER) (test code = 437) NEUTROPHILS ABSOLUTE COUNT 9.75 K/ L 1.56-6.13 H (BEAKER) (test code = 670) LYMPHOCYTES ABSOLUTE COUNT 1.58 K/ L 1.18-3.74 (BEAKER) (test code = 414) MONOCYTES ABSOLUTE COUNT (BEAKER) 1.41 K/ L 0.24-0.36 H (test code = 415) EOSINOPHILS ABSOLUTE COUNT 0.04 K/ L 0.04-0.36 (BEAKER) (test code = 416) BASOPHILS ABSOLUTE COUNT (BEAKER) 0.02 K/ L 0.01-0.08 (test code = 417) IMMATURE GRANULOCYTES-RELATIVE 1 % 0-1 PERCENT (BEAKER) (test code = 2801) [id number] 04:28:00 Test Item Value Reference Range Interpretation Comments Magnesium (test code = 1.7 mg/dL 1.6-2.6 Speci men slightly 75218-8) hemolyzed Lab Interpretation (test Normal code = 35795-2) [facility] 04:28:00 Test Item Value Reference Range Interpretation Comments Phosphorus (test code = 3.2 mg/dL 2.3-4.7 Spec imen slightly 2777-1) hemolyzed Lab Interpretation (test Normal code = 38520-5) [facility] 04:28:00 Test Item Value Reference Range Interpretation Comments MAGNESIUM (BEAKER) 1.7 mg/dL 1.6-2.6 Specimen slightly (test code = 627) hemolyzed [id number] 04:28:00 Test Item Value Reference Range Interpretation Comments PHOSPHORUS (BEAKER) 3.2 mg/dL 2.3-4.7 Specimen slightly (test code = 604) hemolyzed BASIC METABOLIC [id number] 04:28:00 Test Item Value Reference Range Interpretation Comments SODIUM (BEAKER) 133 meq/L 136-145 L (test code = 381) POTASSIUM (BEAKER) 4.2 meq/L 3.5-5.1 Specimen slightly (test code = 379) hemolyzed CHLORIDE (BEAKER) 102 meq/L 98-107 (test code = 382) CO2 (BEAKER) (test 18 meq/L 22-29 L code = 355) BLOOD UREA NITROGEN 7 mg/dL 7-21 (BEAKER) (test code = 354) CREATININE (BEAKER) 0.64 mg/dL 0.57-1.25 Specimen slightly (test code = 358) hemolyzed GLUCOSE RANDOM 161 mg/dL 70-105 H (BEAKER) (test code = 652) CALCIUM (BEAKER) 8.5 mg/dL 8.4-10.2 (test code = 697) EGFR (BEAKER) (test 103 mL/min/1.73 ESTIM ATED GFR IS code = 1092) sq m NOT ACCURATE CREATININE CLEARANCE IN PREDICTING GLOMERULAR FILTRATION RATE . ESTIMATED GFR I S NOT APPLICABLE FOR DIALYSIS PATIEN TS. CBC (Hemogram only)2018-12-28 04:10:00 Test Item Value Reference Range Interpretation Comments WBC (test code = 6690-2) 18.8 3.5- 10.5 K/L H RBC (test code = 789-8) 3.38 3.93- 5.22 M/L L MCHC (test code = 786-4) 31.7 32.2- 35.5 GM/DL L Hematocrit (test code = 4544-3) 29.3 % 34.1-44.9 L MCV (test code = 787-2) 86.7 fL 79.4-94.8 MCH (test code = 785-6) 27.5 pg 25.6-32.2 RDW (test code = 788-0) 15.1 % 11.7-14.4 H Platelets (test code = 777-3) 260 150- 450 K/CU MM MPV (test code = 68011-2) 11.2 fL 9.4-12.3 nRBC (test code = 413) 0 0- 0 /100 WBC Lab Interpretation (test code = Abnormal 92961-1) [facility] 04:10:00 Test Item Value Reference Range Interpretation Comments WHITE BLOOD CELL COUNT (BEAKER) 18.8 K/ L 3.5-10.5 H (test code = 775) RED BLOOD CELL COUNT (BEAKER) 3.38 M/ L 3.93-5.22 L (test code = 761) HEMOGLOBIN (BEAKER) (test code = 9.3 GM/DL 11.2-15.7 L 410) HEMATOCRIT (BEAKER) (test code = 29.3 % 34.1-44.9 L 411) MEAN CORPUSCULAR VOLUME (BEAKER) 86.7 fL 79.4-94.8 (test code = 753) MEAN CORPUSCULAR HEMOGLOBIN 27.5 pg 25.6-32.2 (BEAKER) (test code = 751) MEAN CORPUSCULAR HEMOGLOBIN CONC 31.7 GM/DL 32.2-35.5 L (BEAKER) (test code = 752) RED CELL DISTRIBUTION WIDTH 15.1 % 11.7-14.4 H (BEAKER) (test code = 412) PLATELET COUNT (BEAKER) (test 260 K/CU MM 150-450 code = 756) MEAN PLATELET VOLUME (BEAKER) 11.2 fL 9.4-12.3 (test code = 754) NUCLEATED RED BLOOD CELLS 0 /100 WBC 0-0 (BEAKER) (test code = 413) hCG, quantitative, [id number] 09:54:00 Test Item Value Reference Range Interpretation Comments hCG Quant (test code = <1 0- 10 mIU/mL 69639-6) FRANNIE (test code = FRANNIE) Non- Females: <10 mIU/mL Females: Gestation Age Reference Range(mIU/mL) 0.2-1 Week 5-50 1-2 Weeks 50-500 2-3 Weeks 100-5,000 3-4 Weeks 500-10,000 4-5 Weeks 1,000-50,000 5-6 Weeks 10,000-100,000 6-8 Weeks 15,000-200,000 2-3 Months 10,000-100,000 Lab Interpretation (test Normal code = 19948-9) [facility], [facility]ITAT[facility], [id number] 09:54:00 Test Item Value Reference Range Interpretation Comments GONADOTROPIN, CHORIONIC (HCG) QUANT < mIU/mL 0-10 (BEAKER) (test code = 649) Non- Females: <10 mIU/mL Females: Gestation Age Reference Range(mIU/mL) 0.2-1 Week 5-50 1-2 Weeks 50-500 2-3 Weeks 100-5,000 3-4Weeks 500-10,000 4-5 Weeks 1,000-50,000 5-6 Weeks 10,000-100,000 6-8 Weeks 15,000-200,000 2-3 Months 10,000-100,000BASIC METABOLIC PANEL 2018-12-25 11:35:00 Test Item Value Reference Range Interpretation Comments SODIUM (BEAKER) 139 meq/L 136-145 (test code = 381) POTASSIUM (BEAKER) 3.6 meq/L 3.5-5.1 (test code = 379) CHLORIDE (BEAKER) 105 meq/L 98-107 (test code = 382) CO2 (BEAKER) (test 24 meq/L 22-29 code = 355) BLOOD UREA NITROGEN 9 mg/dL 7-21 (BEAKER) (test code = 354) CREATININE (BEAKER) 0.72 mg/dL 0.57-1.25 (test code = 358) GLUCOSE RANDOM 187 mg/dL 70-105 H (BEAKER) (test code = 652) CALCIUM (BEAKER) 9.3 mg/dL 8.4-10.2 (test code = 697) EGFR (BEAKER) (test 90 mL/min/1.73 ESTIMA ARTIE GFR IS code = 1092) sq m NOT ACCURATE CREATININE CLEARANCE IN PREDICTING GLOMERULAR FILTRATION RATE . ESTIMATED GFR I S NOT APPLICABLE FOR DIALYSIS PATIEN TS. [id number] 11:27:00 Test Item Value Reference Range Interpretation Comments PROTIME (BEAKER) (test code = 12.4 seconds 11.9-14.2 759) INR (BEAKER) (test code = 370) 1.0 <=5.9 PARTIAL THROMBOPLASTIN TIME 29.7 seconds 22.5-36.0 (BEAKER) (test code = 760) Effective 08/28/2018: PT Reference Range ChangeNew: 11.9-14.2 Previous: 11.7- 14.7RECOMMENDED COUMADIN/WARFARIN INR THERAPY RANGESSTANDARD DOSE: 2.0-3.0 Includes: PROPHYLAXIS for venous thrombosis, systemic embolization; TREATMENT for venous thrombosis and/or pulmonary embolus.HIGH RISK: Target INR is2.5-3.5 for patients wiht mechanical heart valves.CBC W/PLT COUNT & AUTO [id number] 11:19:00 Test Item Value Reference Range Interpretation Comments WHITE BLOOD CELL COUNT (BEAKER) 6.9 K/ L 3.5-10.5 (test code = 775) RED BLOOD CELL COUNT (BEAKER) 3.99 M/ L 3.93-5.22 (test code = 761) HEMOGLOBIN (BEAKER) (test code = 11.1 GM/DL 11.2-15.7 L 410) HEMATOCRIT (BEAKER) (test code = 34.7 % 34.1-44.9 411) MEAN CORPUSCULAR VOLUME (BEAKER) 87.0 fL 79.4-94.8 (test code = 753) MEAN CORPUSCULAR HEMOGLOBIN 27.8 pg 25.6-32.2 (BEAKER) (test code = 751) MEAN CORPUSCULAR HEMOGLOBIN CONC 32.0 GM/DL 32.2-35.5 L (BEAKER) (test code = 752) RED CELL DISTRIBUTION WIDTH 14.6 % 11.7-14.4 H (BEAKER) (test code = 412) PLATELET COUNT (BEAKER) (test 309 K/CU MM 150-450 code = 756) MEAN PLATELET VOLUME (BEAKER) 11.0 fL 9.4-12.3 (test code = 754) NUCLEATED RED BLOOD CELLS 0 /100 WBC 0-0 (BEAKER) (test code = 413) NEUTROPHILS RELATIVE PERCENT 56 % (BEAKER) (test code = 429) LYMPHOCYTES RELATIVE PERCENT 32 % (BEAKER) (test code = 430) MONOCYTES RELATIVE PERCENT 8 % (BEAKER) (test code = 431) EOSINOPHILS RELATIVE PERCENT 4 % (BEAKER) (test code = 432) BASOPHILS RELATIVE PERCENT 0 % (BEAKER) (test code = 437) NEUTROPHILS ABSOLUTE COUNT 3.82 K/ L 1.56-6.13 (BEAKER) (test code = 670) LYMPHOCYTES ABSOLUTE COUNT 2.20 K/ L 1.18-3.74 (BEAKER) (test code = 414) MONOCYTES ABSOLUTE COUNT (BEAKER) 0.55 K/ L 0.24-0.36 H (test code = 415) EOSINOPHILS ABSOLUTE COUNT 0.27 K/ L 0.04-0.36 (BEAKER) (test code = 416) BASOPHILS ABSOLUTE COUNT (BEAKER) 0.02 K/ L 0.01-0.08 (test code = 417) IMMATURE GRANULOCYTES-RELATIVE 0 % 0-1 PERCENT (BEAKER) (test code = 2801) MR, SPINE, LUMBAR, [id number] 20:09:00Reason for exam:->demyelinating disease r/oFINAL REPORT MR, SPINE, THORACIC, WITH \T\ WITHOUT CONTRAST, MR, SPINE, LUMBAR, WITH \T\ WITHOUT CONTRAST INDICATION: Multiple sclerosis, new eventMS r/o TECHNIQUE: Multiplanar,multisequence MRI of the thoracic and lumbar spine with and without intravenous contrast. COMPARISON: MRI brain and cervical spine 12/23/2018 FINDINGS: THORACIC SPINE:Alignment: Normal Vertebral bodies:Vertebral body heights are maintained. No marrow edema. No aggressive osseous lesions. Spinal canal:No high-grade canal or foraminal stenosis. Cord: Large syrinx extends from the visualized cervical spine throughout the thoracic spine and terminates at the T11-12 level. No abnormal intrathecal enhancement. Soft tissues: Paraspinal soft tissues are unremarkable. LUMBAR SPINE:Nomenclature: L5-S1 is series 601 image 7. Alignment: Normal Vertebral bodies: Vertebral body heights are maintained. No marrow edema. No aggressive osseous lesions. Spinal canal: No high-grade canal or foraminal stenosis. Cord: Conus is of normal caliber and signal, and terminates at L1-2. Nerve roots of the cauda equina areof normal caliber and distribution. No abnormal intrathecal enhancement. Soft tissues: Paraspinal soft tissues are unremarkable. 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 Signed: Bushra Bob MDReprhoda Verified Date/Time: 12/24/2018 20:09:47 MR, SPINE, THORACIC, [id number] 20:09:00 Reason for exam:->MS r/oFINAL REPORT MR, SPINE, THORACIC, WITH \T\ WITHOUT CONTRAST, MR, SPINE, LUMBAR, WITH \T\ WITHOUT CONTRAST INDICATION: Multiple sclerosis, new eventMS r/o TECHNIQUE: Multiplanar,multisequence MRI of the thoracic and lumbar spine with and without intravenous contrast. COMPARISON: MRI brain and cervical spine 12/23/2018 FINDINGS: THORACIC SPINE:Alignment: Normal Vertebral bodies:Vertebral body heights are maintained. No marrow edema. No aggressive osseous lesions. Spinal canal:No high-grade canal or foraminal stenosis. Cord: Large syrinx extends from the visualized cervical spine throughout the thoracic spine and terminates at the T11-12 level. No abnormal intrathecal enhancement. Soft tissues: Paraspinal soft tissues are unremarkable. LUMBAR SPINE:Nomenclature: L5-S1 is series 601 image 7. Alignment: Normal Vertebral bodies: Vertebral body heights are maintained. No marrow edema. No aggressive osseous lesions. Spinal canal: No high-grade canal or foraminal stenosis. Cord: Conus is of normal caliber and signal, and terminates at L1-2. Nerve roots of the cauda equina areof normal caliber and distribution. No abnormal intrathecal enhancement. Soft tissues: Paraspinal soft tissues are unremarkable. 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 Signed: Bushra Bob MDReport Verified Date/Time: 12/24/2018 20:09:47 MR thoracic spine without & with IV [id number] 20:09:00Interface, External Ris In - 12/24/2018 8:12 PM CDTFINAL REPORT MR, SPINE, THORACIC, WITH \T\ WITHOUT CONTRAST, MR, SPINE, LUMBAR, WITH \T\ WITHOUT CONTRAST INDICATION: Multiple sclerosis, new eventMS r/o TECHNIQUE: Multiplanar, multisequence MRI of the thoracic and lumbar spine with and without intravenous contrast. COMPARISON: MRI brain and cervical spine 12/23/2018 FINDINGS: THORACIC SPINE:Alignment: Normal Vertebral bodies: Vertebral body heights are maintained. No marrowedema. No aggressive osseous lesions. Spinal canal: No high-grade canal or foraminal stenosis. Cord:Large syrinx extends from the visualized cervical spine throughout the thoracic spine and terminatesat the T11-12 level. No abnormal intrathecal enhancement. Soft tissues: Paraspinal soft tissues are unremarkable. LUMBAR SPINE:Nomenclature: L5-S1 is series 601 image 7. Alignment: Normal Vertebral bodies: Vertebral body heights are maintained. No marrow edema. No aggressive osseous lesions. Spinal canal: No high-grade canal or foraminal stenosis. Cord: Conus is of normal caliber and signal, and terminates at L1-2. Nerve roots of the cauda equina are of normal caliber and distribution. No abnormal intrathecal enhancement. Soft tissues: Paraspinal soft tissues are unremarkable. 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 Signed: Bushra Bob MDReport Verified Date/Time: 12/24/2018 20:09:47 [facility] with [facility] [id number] 20:09:00Interface, External Ris In - 12/24/2018 8:12 PM CDTFINAL REPORT MR, SPINE, THORACIC, WITH \T\ WITHOUT CONTRAST, MR, SPINE, LUMBAR, WITH \T\ WITHOUT CONTRAST INDICATION: Multiple sclerosis, new eventMS r/o TECHNIQUE: Multiplanar, multisequence MRI of the thoracic and lumbar spine with and without intravenous contrast. COMPARISON: MRI brain and cervical spine 12/23/2018 FINDINGS: THORACIC SPINE:Alignment: Normal Vertebral bodies: Vertebral body heights are maintained. No marrowedema. No aggressive osseous lesions. Spinal canal: No high-grade canal or foraminal stenosis. Cord:Large syrinx extends from the visualized cervical spine throughout the thoracic spine and terminatesat the T11-12 level. No abnormal intrathecal enhancement. Soft tissues: Paraspinal soft tissues are unremarkable. LUMBAR SPINE:Nomenclature: L5-S1 is series 601 image 7. Alignment: Normal Vertebral bodies: Vertebral body heights are maintained. No marrow edema. No aggressive osseous lesions. Spinal canal: No high-grade canal or foraminal stenosis. Cord: Conus is of normal caliber and signal, and terminates at L1-2. Nerve roots of the cauda equina are of normal caliber and distribution. No abnormal intrathecal enhancement. Soft tissues: Paraspinal soft tissues are unremarkable. 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 Signed: Bushra Bob MDReport Verified Date/Time: 12/24/2018 20:09:47 [facility], [id number] 20:04:00Reason for exam:->Suspected demyelinating diseaseFINAL REPORT MR, BRAIN, WITH \T\ WITHOUT CONTRAST, MR, SPINE, CERVICAL, WITH \T\ WITHOUT CONTRAST INDICATION: Demyelinating disease without spinal cord symptomsSuspected demyelinating disease TECHNIQUE: Multiplanar, multisequence MR imaging of the brain and cervical spine prior to and following intravenous administration of contrast. COMPARISON: MRI brain 12/22/2018 FINDINGS: BRA IN:Intracranial: Again noted is pointed configuration of the low-lying cerebellar tonsils consistentwith Chiari I malformation. There is no abnormal enhancement associated with the T2 hyperintense white matter lesions predominantly within the subcortical bilateral frontal lobes and parietal lobes. Ofnote, there are no callososeptal, brainstem, or cerebellar lesions. These are nonspecific but advanced for patient's age. No extra-axial collection, hydrocephalus or midline shift. Sinuses: No evidenceof sinusitis. Mastoids are clear. Orbits: Globes are intact. Calvarium \T\ scalp: Unremarkable. CERVICAL SPINE:Alignment: Normal. Vertebral bodies: Vertebral body heights are maintained. No edema. No aggressive marrow signal. Spinal canal: No high-grade canal or foraminal stenosis. Spinal cord: Craniocervical junction is normal. As noted on the prior MRI brain, there is a small syrinx at the craniocervical junction associated with the Chiari I malformation. In addition, there is extensive expansile T2/FLAIR hyperintensity throughout the cervical and visualized upper thoracic cord, without associated enhancement. Soft tissues: Paraspinal soft tissues are unremarkable. IMPRESSION:1.Subcortical supra tentorial white matter lesions in a nonspecific configuration but advanced for age. No abnormal intracranial enhancement.2.Chiari I malformation.3.Large syrinx involving the entire cervical and visualized upper thoracic cord. Signed: Bushra Bob MDReport Verified Date/Time: 12/23/2018 20:04:20 El ectronically signed by: BUSHRA BOB MD on 12/23/2018 08:04 PMMR, SPINE, CERVICAL, [id number] 20:04:00Reason for exam:->MS r/oFINAL REPORT MR, BRAIN, WITH \T\ WITHOUT CONTRAST, MR, SPINE, CERVICAL, WITH \T\ WITHOUT CONTRAST INDICATION: Demyelinating disease without spinal cord symptomsSuspected demyelinating disease TECHNIQUE: Multiplanar, multisequence MR imaging of the brain and cervical spine prior to and following intravenous administration of contrast. COMPARISON: MRI brain 12/22/2018 FINDINGS: BRAIN:Intracranial: Again noted is pointed configuration of the low- lying cerebellar tonsils consistentwith Chiari I malformation. There is no abnormal enhancement associated with the T2 hyperintense white matter lesions predominantly within the subcortical bilateral frontal lobes and parietal lobes. Ofnote, there are no callososeptal, brainstem, or cerebellar lesions. These are nonspecific but advanced for patient's age. No extra-axial collection, hydrocephalus or midline shift. Sinuses: No evidenceof sinusitis. Mastoids are clear. Orbits: Globes are intact. Calvarium \T\ scalp: Unremarkable. CERVICAL SPINE:Alignment: Normal. Vertebral bodies: Vertebral body heights are maintained. No edema. No aggressive marrow signal. Spinal canal: No high-grade canal or foraminal stenosis. Spinal cord: Craniocervical junction is normal. As noted on the prior MRI brain, there is a small syrinx at the craniocervical junction associated with the Chiari I malformation. In addition, there is extensive expansile T2/FLAIR hyperintensity throughout the cervical and visualized upper thoracic cord, without associated enhancement. Soft tissues: Paraspinal soft tissues are unremarkable. IMPRESSION:1.Subcortical supra tentorial white matter lesions in a nonspecific configuration but advanced for age. No abnormal intracranial enhancement.2.Chiari I malformation.3.Large syrinx involving the entire cervical and visualized upper thoracic cord. Signed: Bushra Bob MDReport Verified Date/Time: 12/23/2018 20:04:20 El ectronically signed by: BUSHRA BOB MD on 12/23/2018 08:04 PMMR brain without & with IV [id number] 20:04:00Interface, External Ris In - 12/23/2018 8:06 PM CDTFINAL REPORT MR, BRAIN, WITH \T\ WITHOUT CONTRAST, MR, SPINE, CERVICAL, WITH \T\ WITHOUT CONTRAST INDICATION: Demyelinating disease without spinal cord symptomsSuspected demyelinating disease TECHNIQUE: Multiplanar, multisequence MR imaging of the brain and cervical spine prior to and following intravenous administration of contrast. COMPARISON: MRI brain 12/22/2018 FINDINGS: BRAIN:Intracranial: Again noted is pointed configuration of the low-lying cerebellar tonsils consistent with Chiari I malformation. There is no abnormalenhancement associated with the T2 hyperintense white matter lesions predominantly within the subcortical bilateral frontal lobes and parietal lobes. Of note, there are no callososeptal, brainstem, or cerebellar lesions. These are nonspecific but advanced for patient's age. No extra-axial collection, hydrocephalus or midline shift. Sinuses: No evidence of sinusitis. Mastoids are clear. Orbits: Globesare intact. Calvarium \T\ scalp: Unremarkable. CERVICAL SPINE:Alignment: Normal. Vertebral bodies: Vertebral body heights are maintained. No edema. No aggressive marrow signal. Spinal canal: No high-grade canal or foraminal stenosis. Spinal cord: Craniocervical junction is normal. As noted on the prior MRI brain, there is a small syrinx at the craniocervical junction associated with the Chiari I malfo rmation. In addition, there is extensive expansile T2/FLAIR hyperintensity throughout the cervical and visualized upper thoracic cord, without associated enhancement. Soft tissues: Paraspinal soft tissues are unremarkable. IMPRESSION:1.Subcortical supratentorial white matter lesions in a nonspecific c onfiguration but advanced for age. No abnormal intracranial enhancement.2.Chiari I malformation.3.Large syrinx involving the entire cervical and visualized upper thoracic cord. Signed: Bushra Bob Verified Date/Time: 12/23/2018 20:04:20 [facility]MR [facility] & with IV [id number] 20:04:00Interface, External Ris In - 12/23/2018 8:06 PM CDTFINAL REPORT MR, BRAIN, WITH \T\ WITHOUT CONTRAST, MR, SPINE, CERVICAL, WITH \T\ WITHOUT CONTRAST INDICATION: Demyelinating dis ease without spinal cord symptomsSuspected demyelinating disease TECHNIQUE: Multiplanar, multisequence MR imaging of the brain and cervical spine prior to and following intravenous administration of contrast. COMPARISON: MRI brain 12/22/2018 FINDINGS: BRAIN:Intracranial: Again noted is pointed configuration of the low-lying cerebellar tonsils consistent with Chiari I malformation. There is no abnormalenhancement associated with the T2 hyperintense white matter lesions predominantly within the subcortical bilateral frontal lobes and parietal lobes. Of note, there are no callososeptal, brainstem, or cerebellar lesions. These are nonspecific but advanced for patient's age. No extra-axial collection, hydrocephalus or midline shift. Sinuses: No evidence of sinusitis. Mastoids are clear. Orbits: Globesare intact. Calvarium \T\ scalp: Unremarkable. CERVICAL SPINE:Alignment: Normal. Vertebral bodies: Vertebral body heights are maintained. No edema. No aggressive marrow signal. Spinal canal: No high-grade canal or foraminal stenosis. Spinal cord: Craniocervical junction is normal. As noted on the prior MRI brain, there is a small syrinx at the craniocervical junction associated with the Chiari I malformation. In addition, there is extensive expansile T2/FLAIR hyperintensity throughout the cervical and visualized upper thoracic cord, without associated enhancement. Soft tissues: Paraspinal soft tissues are unremarkable. IMPRESSION:1.Subcortical supratentorial white matter lesions in a nonspecific configuration but advanced for age. No abnormal intracranial enhancement.2.Chiari I malformation.3.Large syrinx involving the entire cervical and visualized upper thoracic cord. Signed: Bushra Bob [facility] Verified Date/Time: 12/23/2018 20:04:20 [facility]MR[facility], WITHOUT [id number] 20:03:00Reason for exam:->Work up demyelinating diseaseFINAL REPORT Exam: MRI brain without contrast. Comparison: None. Clinical indication: Demyelinating disease without spinal cord symptomsWork up demyelinating disease Technique: Multiplanar multi sequential MR imaging of the brain was performed without the administration of intravenous contrast. Findings:There are multiple small FLAIR hyperintensities in the bilateral subcortical and periventricular white matter without mass effect in keeping with known history of demyelinating disease. There is inferior displacement of the bilateral cerebellar tonsils through the foramen magnum with peglike tonsils compatible with a Chiari I malformation. There is a syrinx in the visualized upper cervical cord (C2-C5). There is no intracranial mass, mass effect, extra-axial collection, hy drocephalus or herniation. There is no restricted diffusion to suggest an acute infarct. There is no abnormality on susceptibility sequences to suggest hemorrhage or hemosiderin deposition. The skull base flow-voids are seen in keeping with their patency. The visualized paranasal sinuses and mastoidair cells are clear. The orbits, sella and parasellar regions are unremarkable. Impression:Multiplesmall FLAIR hyperintensities in the supratentorial brain in keeping with known history of demyelinating disease. Chiari I malformation with a syrinx in the upper cervical cord. No acute infarct, hemorrhage or mass effect. Signed: Scott Jorge MDReport Verified Date/Time: 12/22/2018 20:03:54 MR brain without IV [id number] 20:03:00Interface, External Ris In - 12/22/2018 8:13 PM CDTFINAL REPORT Exam: MRI brain without contrast. Comparison: None. Clinical indication: Demyelinating disease without spinal cord symptomsWork up demyelinating disease Technique: Multiplanar multi sequential MR imaging of the brain was performed without the administration of intravenous contrast. Findings:There are multiple small FLAIR hyperintensities in the bilateral subcortical and periventricular white matter without masseffect in keeping with known history of demyelinating disease. There is inferior displacement of thebilateral cerebellar tonsils through the foramen magnum with peglike tonsils compatible with a Chiari I malformation. There is a syrinx in the visualized upper cervical cord (C2-C5). There is no intracranial mass, mass effect, extra-axial collection, hydrocephalus or herniation. There is no restricted diffusion to suggest an acute infarct. There is no abnormality on susceptibility sequences to suggest hemorrhage or hemosiderin deposition. The skull base flow-voids are seen in keeping with their patency. The visualized paranasal sinuses and mastoid air cells are clear. The orbits, sella and parase llar regions are unremarkable. Impression:Multiple small FLAIR hyperintensities in the supratentorial brain in keeping with known history of demyelinating disease. Chiari I malformation with a syrinx in the upper cervical cord. No acute infarct, hemorrhage or mass effect. Signed: Scott Jorge MDReport Verified Date/Time: 12/22/2018 20:03:54 [facility] CenterHemoglobin [id number] 11:55:00 Test Item Value Reference Range Interpretation Comments Hemoglobin A1C (test code = 4548-4) 6.2 % 4.3-6.1 H Lab Interpretation (test code = Abnormal 34484-6) [facility] HospitalHEMOGLOBIN [id number] 11:55:00 Test Item Value Reference Range Interpretation Comments HEMOGLOBIN A1C (BEAKER) (test code = 6.2 % 4.3-6.1 H 368) Urinalysis w/Microscopic + Reflex to [id number] 11:13:00 Test Item Value Reference Range Interpretation Comments Color, UA (test code = 5778-6) Light Yellow Clarity, UA (test code = 5767-9) Clear Specific Bryan, UA (test code 1.014 1.001-1.035 = 5811-5) pH, UA (test code = 5803-2) 7.0 5.0-8.0 Protein, UA (test code = Negative Negative 31067-7) Glucose, UA (test code = 365) Negative Negative Ketones, UA (test code = 2514-8) Negative Negative Bilirubin, UA (test code = Negative Negative 34539-0) Blood, UA (test code = 52280-1) Negative Negative Nitrite, UA (test code = 5802-4) Negative Negative Leukocytes, UA (test code = Trace Negative A 5799-2) Urobilinogen, UA (test code = 0.2 mg/dL 0.2-1 80757-4) RBC, UA (test code = 05857-3) 1 /HPF WBC, UA (test code = 5821-4) 2 /HPF Bacteria, UA (test code = Occasional 64238-4) Mucus (test code = 8247-9) Occasional Squam Epithel, UA (test code = 10 /HPF 85180-0) Hyaline Casts, UA (test code = 2 /LPF 40402-8) Specimen Source (test code = 2795) Lab Interpretation (test code = Abnormal 59019-6) [facility]/ REFLEX URINE [id number] 11:13:00 Test Item Value Reference Range Interpretation Comments COLOR (BEAKER) (test code = 470) Light Yellow CLARITY (BEAKER) (test code = Clear 469) SPECIFIC GRAVITY UA (BEAKER) 1.014 1.001-1.035 (test code = 468) PH UA (BEAKER) (test code = 467) 7.0 5.0-8.0 PROTEIN UA (BEAKER) (test code = Negative Negative 464) GLUCOSE UA (BEAKER) (test code = Negative Negative 365) KETONES UA (BEAKER) (test code = Negative Negative 371) BILIRUBIN UA (BEAKER) (test code Negative Negative = 462) BLOOD UA (BEAKER) (test code = Negative Negative 461) NITRITE UA (BEAKER) (test code = Negative Negative 465) LEUKOCYTE ESTERASE UA (BEAKER) Trace Negative A (test code = 466) UROBILINOGEN UA (BEAKER) (test 0.2 mg/dL 0.2-1.0 code = 463) RBC UA (BEAKER) (test code = 1 /HPF 519) WBC UA (BEAKER) (test code = 2 /HPF 520) BACTERIA (BEAKER) (test code = Occasional 517) MUCUS (BEAKER) (test code = Occasional 1574) SQUAMOUS EPITHELIAL (BEAKER) 10 /HPF (test code = 516) HYALINE CASTS (BEAKER) (test 2 /LPF code = 514) SOURCE(BEAKER) (test code = 2795) TSH/Free T4 If [id number] 10:29:00 Test Item Value Reference Range Interpretation Comments TSH (test code = 97827-0) 1.19 0.35- 4.94 uIU/mL Lab Interpretation (test code = Normal 21094-9) [facility] HospitalVitamin B12 and [id number] 10:29:00 Test Item Value Reference Range Interpretation Comments Vitamin B12 (test code = 2132-9) 281 pg/mL 213-816 Folate (test code = 2284-8) 11.9 ng/mL >=7.0 Lab Interpretation (test code = Normal 75230-4) [facility] HospitalTSH/FREE T4 IF [id number] 10:29:00 Test Item Value Reference Range Interpretation Comments THYROID STIMULATING HORMONE 1.19 uIU/mL 0.35-4.94 (BEAKER) (test code = 772) VITAMIN B12 AND [id number] 10:29:00 Test Item Value Reference Range Interpretation Comments VITAMIN B12 (BEAKER) (test code = 281 pg/mL 213-816 774) FOLATE (BEAKER) (test code = 362) 11.9 ng/mL >=7.0 Lipid [id number] 09:54:00 Test Item Value Reference Range Interpretation Comments Triglycerides (test 195 mg/dL code = 2571-8) Cholesterol (test code 144 mg/dL = 2093-3) HDL (test code = 33 mg/dL 5-9) LDL Calculated (test 72 mg/dL code = 95741-1) FRANNIE (test code = FRANNIE) Triglyceride Reference Range: Low Risk <150 Borderline 150-199 High Risk 200-499 Very High Risk >=500 Cholesterol Reference Range: Low Risk <200 Borderline 200-239 High Risk >240 HDL Cholesterol Reference Range: Low Risk >=60 High Risk <40 LDL Cholesterol Reference Range: Optimal <100 Near Optimal 100-129 Borderline 130-159 High 160-189 Very High >=190 [facility] Test Item Value Reference Range Interpretation Comments PHOSPHORUS (BEAKER) (test code = 3.9 mg/dL 2.3-4.7 604) [id number] 09:54:00 Test Item Value Reference Range Interpretation Comments MAGNESIUM (BEAKER) (test code = 2.0 mg/dL 1.6-2.6 627) BASIC METABOLIC [id number] 09:54:00 Test Item Value Reference Range Interpretation Comments SODIUM (BEAKER) 137 meq/L 136-145 (test code = 381) POTASSIUM (BEAKER) 3.8 meq/L 3.5-5.1 (test code = 379) CHLORIDE (BEAKER) 105 meq/L 98-107 (test code = 382) CO2 (BEAKER) (test 26 meq/L 22-29 code = 355) BLOOD UREA NITROGEN 9 mg/dL 7-21 (BEAKER) (test code = 354) CREATININE (BEAKER) 0.67 mg/dL 0.57-1.25 (test code = 358) GLUCOSE RANDOM 123 mg/dL 70-105 H (BEAKER) (test code = 652) CALCIUM (BEAKER) 8.6 mg/dL 8.4-10.2 (test code = 697) EGFR (BEAKER) (test 97 mL/min/1.73 ESTIMA ARTIE GFR IS code = 1092) sq m NOT ACCURATE CREATININE CLEARANCE IN PREDICTING GLOMERULAR FILTRATION RATE . ESTIMATED GFR I S NOT APPLICABLE FOR DIALYSIS PATIMIKI TS. LIPID [id number] 09:54:00 Test Item Value Reference Range Interpretation Comments TRIGLYCERIDES (BEAKER) (test code = 195 mg/dL 540) CHOLESTEROL (BEAKER) (test code = 144 mg/dL 631) HDL CHOLESTEROL (BEAKER) (test code 33 mg/dL = 976) LDL CHOLESTEROL CALCULATED (BEAKER) 72 mg/dL (test code = 633) Triglyceride Reference Range: Low Risk <150 Borderline 150-199 High Risk 200-499 Very High Risk >=500Cholesterol Reference Range: Low Risk <200 Borderline 200-239 High Risk >240HDL Cholesterol Reference Range: Low Risk >=60 High Risk <40LDL Cholesterol Reference Range: Optimal <100 Near Optimal 100-129 Borderline 130-159 High 160-189 Very High >=190CBC W/PLT COUNT & AUTO [id number] 09:40:00 Test Item Value Reference Range Interpretation Comments WHITE BLOOD CELL COUNT (BEAKER) 7.7 K/ L 3.5-10.5 (test code = 775) RED BLOOD CELL COUNT (BEAKER) 3.55 M/ L 3.93-5.22 L (test code = 761) HEMOGLOBIN (BEAKER) (test code = 9.7 GM/DL 11.2-15.7 L 410) HEMATOCRIT (BEAKER) (test code = 31.2 % 34.1-44.9 L 411) MEAN CORPUSCULAR VOLUME (BEAKER) 87.9 fL 79.4-94.8 (test code = 753) MEAN CORPUSCULAR HEMOGLOBIN 27.3 pg 25.6-32.2 (BEAKER) (test code = 751) MEAN CORPUSCULAR HEMOGLOBIN CONC 31.1 GM/DL 32.2-35.5 L (BEAKER) (test code = 752) RED CELL DISTRIBUTION WIDTH 14.6 % 11.7-14.4 H (BEAKER) (test code = 412) PLATELET COUNT (BEAKER) (test 256 K/CU MM 150-450 code = 756) MEAN PLATELET VOLUME (BEAKER) 11.0 fL 9.4-12.3 (test code = 754) NUCLEATED RED BLOOD CELLS 0 /100 WBC 0-0 (BEAKER) (test code = 413) NEUTROPHILS RELATIVE PERCENT 59 % (BEAKER) (test code = 429) LYMPHOCYTES RELATIVE PERCENT 27 % (BEAKER) (test code = 430) MONOCYTES RELATIVE PERCENT 10 % (BEAKER) (test code = 431) EOSINOPHILS RELATIVE PERCENT 3 % (BEAKER) (test code = 432) BASOPHILS RELATIVE PERCENT 0 % (BEAKER) (test code = 437) NEUTROPHILS ABSOLUTE COUNT 4.57 K/ L 1.56-6.13 (BEAKER) (test code = 670) LYMPHOCYTES ABSOLUTE COUNT 2.09 K/ L 1.18-3.74 (BEAKER) (test code = 414) MONOCYTES ABSOLUTE COUNT (BEAKER) 0.76 K/ L 0.24-0.36 H (test code = 415) EOSINOPHILS ABSOLUTE COUNT 0.24 K/ L 0.04-0.36 (BEAKER) (test code = 416) BASOPHILS ABSOLUTE COUNT (BEAKER) 0.03 K/ L 0.01-0.08 (test code = 417) IMMATURE GRANULOCYTES-RELATIVE 0 % 0-1 PERCENT (BEAKER) (test code = 6271)
[2019-11-20 22:56] LABS: Basophils % 0.7 % (0-1.3); Hematocrit 30.5 % (36.0-45.0); Lymphocytes % 20.8 % (15.3-44.8); MPV 9.3 fL (7.6-11.3); RBC Red Blood Cell Count 3.91 M/uL (3.86-4.86)
[2019-11-20 23:07] LABS: ALT/SGPT 77 U/L (12-78); AST/SGOT 34 U/L (15-37); Albumin 3.7 g/dL (3.4-5.0); Alkaline Phosphatase 68 U/L (45-117); BUN Blood Urea Nitrogen 8 mg/dL (7-18); Bicarbonate 26 mmol/L (21-32); Bilirubin Direct 0.1 mg/dL (0-0.2); Bilirubin Total 0.5 mg/dL (0.2-1.0); Glucose Level 125 mg/dL (74-106); Lipase 126 U/L (73-393); Potassium 3.6 mmol/L (3.5-5.1); Protein, Total 7.9 g/dL (6.4-8.2); Sodium Level 138 mmol/L (136-145)
[2019-11-20 23:23] LABS: Urine Blood NEGATIVE (NEG); Urine Glucose NEGATIVE (NEG); Urine Protein NEGATIVE (NEG); Urine pH 5.5 (5.0-7.0)
--- NOTE | 2019-11-21 00:36 | EDPHYS ---
Physician Documentation [facility] Name: Jane Pitt Age: 39 yrs Sex: Female : 1980 Arrival Date: 11/20/2019 Time: 21:31 Bed 3 Private MD: ED Physician Mahesh Graves HPI: 11/19 22:27 This 39 yrs old Female presents to ER via Ambulatory with complaints of mh7 Abdominal Pain. 22:27 The patient presents with abdominal pain in the left lower quadrant. Onset: The mh7 symptoms/episode began/occurred 1 week(s) ago. The symptoms do not radiate. Associated signs and symptoms: Pertinent negatives: nausea, vomiting, and diarrhea, anorexia, blood in stools, chest pain, constipation, diarrhea, dysuria, fever, headache, hematuria, nausea, palpitations, shortness of breath, vaginal discharge, vomiting, vomiting blood. The symptoms are described as intermittent, vague, waxing/waning. Modifying factors: The symptoms are alleviated by nothing, the symptoms are aggravated by nothing. Severity of pain: At its worst the pain was moderate yesterday, in the emergency department the pain has improved moderately. DIRECTOR DATABASE: 21:54 LMP N/A - Hysterectomy ls4 Historical: - Allergies: 22:00 No Known Allergies; ls4 - Home Meds: 22:00 Glatopa 20 mg/mL subcutaneous syrg 1 mL once daily for Relapsing Form of Multiple ls4 Sclerosis [Active]; - PMHx: 22:00 MULTIPLE SCLEROSIS; ls4 - PSHx: 22:00 Hysterectomy; HYDROCEPHALUS; ls4 - Immunization history:: Adult Immunizations up to date. - Social history:: Smoking status: Patient denies any tobacco usage or history of. ROS: 22:27 Constitutional: Negative for fever, chills, and weight loss, Eyes: Negative for injury, mh7 pain, redness, and discharge, ENT: Negative for injury, pain, and discharge, Neck: Negative for injury, pain, and swelling, Cardiovascular: Negative for chest pain, palpitations, and edema, Respiratory: Negative for shortness of breath, cough, wheezing, and pleuritic chest pain, Back: Negative for injury and pain, : Negative for injury, bleeding, discharge, and swelling, MS/Extremity: Negative for injury and deformity, Skin: Negative for injury, rash, and discoloration, Neuro: Negative for headache, weakness, numbness, tingling, and seizure, Psych: Negative for depression, anxiety, suicide ideation, homicidal ideation, and hallucinations, Allergy/Immunology: Negative for hives, rash, and allergies, Endocrine: Negative for neck swelling, polydipsia, polyuria, polyphagia, and marked weight changes, Hematologic/Lymphatic: Negative for swollen nodes, abnormal bleeding, and unusual bruising. Exam: 22:27 Constitutional: This is a well developed, well nourished patient who is awake, alert, mh7 and in no acute distress. Head/Face: Normocephalic, atraumatic. Neck: Trachea midline, no thyromegaly or masses palpated, and no cervical lymphadenopathy. Supple, full range of motion without nuchal rigidity, or vertebral point tenderness. No Meningismus. Chest/axilla: Normal chest wall appearance and motion. Nontender with no deformity. No lesions are appreciated. Cardiovascular: Regular rate and rhythm with a normal S1 and S2. No gallops, murmurs, or rubs. Normal PMI, no JVD. No pulse deficits. Respiratory: Lungs have equal breath sounds bilaterally, clear to auscultation and percussion. No rales, rhonchi or wheezes noted. No increased work of breathing, no retractions or nasal flaring. 22:27 Back: No spinal tenderness. No costovertebral tenderness. Full range of motion. Skin: Warm, dry with normal turgor. Normal color with no rashes, no lesions, and no evidence of cellulitis. MS/ Extremity: Pulses equal, no cyanosis. Neurovascular intact. Full, normal range of motion. Neuro: Awake and alert, GCS 15, oriented to person, place, time, and situation. Cranial nerves II-XII grossly intact. Motor strength 5/5 in all extremities. Sensory grossly intact. Cerebellar exam normal. Normal gait. Psych: Awake, alert, with orientation to person, place and time. Behavior, mood, and affect are within normal limits. 22:27 Abdomen/GI: Inspection: abdomen appears normal, obese Bowel sounds: normal, in all quadrants, Palpation: moderate abdominal tenderness, in the left lower quadrant, Rectal exam: the exam is deferred, because of patient request, Indicators: McBurney's point is not tender, Rosales's sign is negative, Rovsing's sign is negative, Obturator sign is negative, Psoas sign is negative, Liver: no appreciated palpable abnormalities, Hernia: not appreciated. 11/20 00:28 : CVA tenderness, is absent, Pelvic Exam: The exam is refused by the [facility] patient/guardian. The risks and consequences are understood by the patient, Bladder: is normal, Rectal exam: is refused by patient or guardian. Vital Signs: 11/19 21:54 BP 130 / 85; Pulse 79; Resp 20; Temp 98.8(TE); Pulse Ox 98% on R/A; Weight 100.7 kg; ls4 Height 5 ft. 4 in. (162.56 cm); Pain 8/10; 23:28 BP 130 / 80; Pulse 69; Resp 18; Pulse Ox 99% on R/A; lp1 11/20 00:00 BP 116 / 65; Pulse 69; Resp 16; Pulse Ox 98% on R/A; jb4 11/19 21:54 Body Mass Index 38.11 (100.70 kg, 162.56 cm) ls4 MDM: 11/19 22:[address] [facility] 11/20 00:28 Differential diagnosis: bowel obstruction, diverticulitis, non-specific abd pain, [facility] Pyelonephritis, Ureterolithiasis, urinary tract infection. Data reviewed: vital signs, nurses notes, lab test result(s), CBC, electrolytes, urinalysis, UPT: negative radiologic studies, CT scan. Data interpreted: Pulse oximetry: on room air is 99 %. Interpretation: normal. Counseling: I had a detailed discussion with the patient and/or guardian regarding: the historical points, exam findings, and any diagnostic results supporting the discharge/admit diagnosis, lab results, radiology results, the need for outpatient follow up, an OB/Gyne specialist, to return to the emergency department if symptoms worsen or persist or if there are any questions or concerns that arise at home. Response to treatment: the patient's symptoms have resolved after treatment, the patient's blood pressure is in an acceptable range, mental status has returned to baseline, the patient no longer shows bradycardia, the patient is not short of breath, the patient is not tachycardic, the patient's pain is gone, the patient's temperature has normalized, the patient's condition has returned to base line, the patient is now symptom free. 11/19 22:25 Order name: Urine Dipstick--Ancillary (enter results); Complete Time: 23:29 tt3 11/19 22:25 Order name: Urine --Ancillary (enter results); Complete Time: 23:29 tt3 11/19 22:26 Order name: Basic Metabolic Panel; Complete Time: 23:17 [facility] 11/19 22:26 Order name: CBC with Diff; Complete Time: 23:17 [facility] 11/19 22:26 Order name: Hepatic Function; Complete Time: 23:17 7 11/19 22:26 Order name: Lipase; Complete Time: 23:17 [facility] 11/19 22:26 Order name: IV Saline Lock; Complete Time: :44 [facility] 11/19 22:26 Order name: Labs collected and sent; Complete Time: :44 [facility] 11/19 22:32 Order name: Urine Dipstick-Ancillary (obtain specimen); Complete Time: 22:32 lp1 11/19 23:18 Order name: CT Abd/Pelvis - IV Contrast Only [facility] Administered Medications: No medications were administered Disposition: 06:43 Co-signature as Attending Physician, Mahesh Graves MD. [facility] Disposition: 11/21/19 00:36 Discharged to Home. Impression: Abdominal Pain, Uterine Mass. - Condition is Stable. - Discharge Instructions: Abdominal Pain, Adult, [id number], Uterine Fibroids, [id number]. - Medication Reconciliation Form, Thank You Letter, Antibiotic Education, Prescription Opioid Use form. - Follow up: Private Physician; When: 1 - 2 days; Reason: Worsening of condition, Recheck today's complaints, Continuance of care, Re-evaluation by your physician. Follow up: Brea Richey MD; When: 1 - 2 days; Reason: Worsening of condition, Further diagnostic work-up, Recheck today's complaints. - Problem is new. - Symptoms have improved. Signatures: Dispatcher [employer] Micki Smart, RN RN lp1 Ilir Morales RN RN jb4 Hollie Arriola RN RN ls4 Mahesh Graves MD MD 7 Corrections: (The following items were deleted from the chart) 01:04 00:36 11/21/2019 00:36 Discharged to Home. Impression: Abdominal Pain; Uterine Mass. jb4 Condition is Stable. Forms are Medication Reconciliation Form, Thank You Letter, Antibiotic Education, Prescription Opioid Use. Follow up: Private Physician; When: 1 - 2 days; Reason: Worsening of condition, Recheck today's complaints, Continuance of care, Re-evaluation by your physician. Follow up: Brea Richey; When: 1 - 2 days; Reason: Worsening of condition, Further diagnostic work-up, Recheck today's complaints. Problem is new. Symptoms have improved. mh7
--- NOTE | 2019-11-21 00:36 | ER ---
Nurse's Notes [facility] Name: Jane Pitt Age: 39 yrs Sex: Female : 1980 Arrival Date: 11/20/2019 Time: 21:31 Bed 3 Private MD: Diagnosis: Abdominal Pain;Uterine Mass Presentation: 11/19 21:57 Chief complaint: Patient states: PAIN IN LEFT SIDE AND LOWER ABDOMEN. PAIN BEGAN 3 DAYS ls4 AGO AND IT GETS WORSE EVERYDAY. TOOK TYLENOL YESTERDAY AND IT DID NOT HELP. Coronavirus screen: At this time, the client does not indicate any symptoms associated with coronavirus-19. Ebola Screen: No symptoms or risks identified at this time. Initial Sepsis Screen: Does the patient meet any 2 criteria? No. Patient's initial sepsis screen is negative. Does the patient have a suspected source of infection? No. Patient's initial sepsis screen is negative. Risk Assessment: Do you want to hurt yourself or someone else? Patient reports no desire to harm self or others. Onset of symptoms was November 17, 2019 at 08:00. 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 - Social history:: Smoking status: Patient denies any tobacco usage or history of. Screenin:00 Abuse screen: Denies threats or abuse. Denies injuries from another. Nutritional ls4 screening: No deficits noted. Tuberculosis screening: No symptoms or risk factors identified. Fall Risk None identified. Assessment: 22:30 General: Appears in no apparent distress. Behavior is calm, cooperative, appropriate lp1 for age. Pain: Complains of pain in suprapubic area Pain currently is 5 out of 10 on a pain scale. Quality of pain is described as aching, crampy. Neuro: Level of Consciousness is awake, alert, obeys commands, Oriented to person, place, time, situation. Cardiovascular: Patient's skin is warm and dry. Respiratory: Respiratory effort is even, unlabored. GI: Abdomen is non-distended, Bowel sounds present X 4 quads. Abdomen is tender to palpation in suprapubic area. : Denies burning with urination, pain with urination. EENT: No signs and/or symptoms were reported regarding the EENT system. Derm: Skin is pink, warm \T\ dry. Musculoskeletal: No deficits noted. 23:28 Reassessment: Patient states Morphine may be too strong for her; Provider notified. lp1 23:53 Reassessment: Patient is alert, oriented x 3, equal unlabored respirations, skin lp1 warm/dry/pink. Patient returned from CT; states she will hold off on pain medication; talking to family on phone at this time. 11/20 01:03 Reassessment: Patient and/or family updated on plan of care and expected duration. Pain jb4 level reassessed. Patient is alert, oriented x 3, equal unlabored respirations, skin warm/dry/pink. Pt verbalized understanding of D/c and follow up instructions. Denies questions or concerns. Ambulated out of ED with steady gait. Vital Signs: 11/19 21:54 BP 130 / 85; Pulse 79; Resp 20; Temp 98.8(TE); Pulse Ox 98% on R/A; Weight 100.7 kg; ls4 Height 5 ft. 4 in. (162.56 cm); Pain 8/10; 23:28 BP 130 / 80; Pulse 69; Resp 18; Pulse Ox 99% on R/A; lp1 11/20 00:00 BP 116 / 65; Pulse 69; Resp 16; Pulse Ox 98% on R/A; jb4 11/19 21:54 Body Mass Index 38.11 (100.70 kg, 162.56 cm) ls4 ED Course: 11/19 21:31 Patient arrived in ED. cl3 21:43 Hollie Arriola, FABIANA is Primary Nurse. ls4 21:54 Arm band placed on right wrist. Patient placed. ls4 21:58 Triage completed. ls4 22:04 Mahesh Graves MD is Attending Physician. mh7 22:30 Patient has correct armband on for positive identification. Placed in gown. lp1 22:30 Pulse ox on. NIBP on. lp1 22:40 Inserted saline lock: 20 gauge in right antecubital area, using aseptic technique. lp1 Blood collected. 23:27 Micki Olivares, RN is Primary Nurse. lp1 23:55 CT Abd/Pelvis - IV Contrast Only In Process Unspecified. EDNC 11/20 00:31 Brea Richey MD is Referral Physician. 7 01:04 No provider procedures requiring assistance completed. IV discontinued, intact, jb4 bleeding controlled, No redness/swelling at site. Pressure dressing applied. Administered Medications: No medications were administered Outcome: 00:36 Discharge ordered by . 7 01:04 Discharged to home ambulatory. jb4 01:04 Condition: stable 01:04 Discharge instructions given to patient, Instructed on discharge instructions, follow up and referral plans. Demonstrated understanding of instructions, follow-up care. 01:04 Patient left the ED. jb4 Signatures: Dispatcher [employer] [facility] Micki Olivares, RN RN lp1 Ilir Morales RN RN jb4 Hollie Arriola, FABIANA RN jennifer4 Maxwell Friend cl3 Mahesh Graves MD MD 7
[2019-11-21 01:55] VITALS: TEMP 98.8
[2019-11-21 01:58] VITALS: BP 116/65; O2SAT 98
--- NOTE | 2019-11-21 10:52 | RAD REPORT ---
EXAM DESCRIPTION: CT Abdomen and Pelvis With Intravenous Contrast CLINICAL HISTORY: The patient is 39 years old and is Female; ABD PAIN TECHNIQUE: Axial computed tomography images of the abdomen and pelvis with intravenous contrast. S agittal and coronal reformatted images were created and reviewed. This CT exam was performed using one or more of the following dose reduction techniques: automated exposure control, adjustment of t he mA and/or kV according to patient size, and/or use of iterative reconstruction technique. DLP: 2459 mGy*cm COMPARISON: CT abdomen and pelvis dated 12/22/2018. FINDINGS: LUNG BASES: Lung bases are clear. HEART: Visualized heart is normal. ABDOMEN: LIVER: Diffuse hepatic steatosis. GALLBLADDER AND BILE DUCTS: Unremarkable. No calcified stones. No ductal dilation. PANCREAS: Unremarkable. No mass. No ductal dilation. SPLEEN: Unremarkable. No splenomegaly. ADRENALS: 1.2 cm right adrenal nodule. KIDNEYS AND URETERS: Unremarkable. No solid mass. No hydronephrosis. STOMACH AND BOWEL: Unremarkable. No obstruction. No mucosal thickening. PELVIS: APPENDIX: The appendix is seen and is within normal limits. BLADDER: Bladder is decompressed. No intraluminal stone. REPRODUCTIVE: Enlargement of the uterus with hypodense mass in the left fundus measuring approxima tely 3.7 x 2.6 cm. ABDOMEN and PELVIS: INTRAPERITONEAL SPACE: Unremarkable. No free air. No significant fluid collection. BONES/JOINTS: No acute fracture. No dislocation. SOFT TISSUES: Unremarkable. VASCULATURE: Unremarkable. No abdominal aortic aneurysm. LYMPH NODES: Unremarkable. No enlarged lymph nodes. IMPRESSION: 1. No acute abdominal or pelvic abnormality. 2. 1.2 cm right adrenal nodule. 3. Diffuse hepatic steatosis. 4. Enlargement of the uterus with hypodense mass in the left fundus measuring approximately 3.7 x 2 .6 cm. Electronically signed by: Pierre Leiva DO 11/21/2019 12:13 AM CDT Due to temporary technical issues with the PACS/Fluency reporting system, reports are being signed by the in house radiologist without review as a courtesy to ensure prompt reporting. The interpreting r adiologist is fully responsible for the content of the report.
== END 2019-11-21 01:04 | disposition home or self-care (01) ==
LOC: ER 21:28
DX: N85.8 Other specified noninflammatory disorders of uterus (principal); G35 Multiple sclerosis
CPT/HCPCS: 85025; 80048; 36415; 81025; 80076; 81003; 83690; 74177; 99284; Q9967